=== PATIENT | male | born 1965 | race American Indian/Alaskan Native ===

== ENCOUNTER 2016-06-24 12:49 | Emergency (ER) | payer BC, OTHER ==
[2016-06-24 12:59] VITALS: BMI 30.4
[2016-06-24 13:05] VITALS: TEMP 98.4
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
[2016-06-24 14:50] VITALS: BP 121/76; PULSE 85; RESP 16; O2SAT 98
== END 2016-06-24 14:49 | disposition home or self-care (01) ==
LOC: ED 12:49
DX: S39.012A Strain of muscle, fascia and tendon of lower back, initial encounter (principal); V49.9XXA Car occupant (driver) (passenger) injured in unspecified traffic accident, initial encounter
CPT/HCPCS: 72070; 72110; 96372; 99283; J1885

== ENCOUNTER 2016-10-08 19:08 | Inpatient (IN) | payer BC, OTHER ==
[2016-10-08 19:08] VITALS: BMI 30.4
[2016-10-08] MEDS ORDERED: Sodium Chloride 0.9% 1,000 ML IV STA (19:47)
[2016-10-08] MEDS ORDERED: Morphine 4 mg/ml ISec IVP STA (19:47)
--- NOTE | 2016-10-08 19:53 | ED PDOC ---
Arrival/HPI - General Chief Complaint: Chest Pain Time Seen by Provider: 10/08/16 19:20 Historian: Patient - History of Present Illness Narrative History of Present Illness (Text): 10/08/16 19:50 Pt. to ED PMHX HTN,NIDDM with c/o intermittent right upper abdominal pain radiating at times to the back.Symptoms appear provoked /worsened post prandial.Also with occassional vomiting.Pt. also states had some burning epigastric/chest pain.Symptoms began yesterday.No hx. of any sob.No diarrhea. Past Medical History - Provider Review Nursing Documentation Reviewed: Yes - Travel History Have you recently traveled outside [place] w/in the past 3 mons?: No - Infectious Disease Hx of Infectious Diseases: None - Cardiac Hx Hypertension: Yes - Pulmonary Hx Respiratory Disorders: No - Neurological Hx Paralysis: No - Endocrine/Metabolic Hx Diabetes Mellitus Type 2: Yes - Hematological/Oncological Hx Blood Transfusions: No Hx Blood Transfusion Reaction: No - Integumentary Hx Dermatological Disorder: No - Musculoskeletal/Rheumatological Hx Musculoskeletal Disorders: No - Genitourinary/Gynecological Hx Genitourinary Disorders: No - Psychiatric Hx Emotional Abuse: No Hx Physical Abuse: No Hx Substance Use: No - Anesthesia Hx Anesthesia Reactions: No Hx Malignant Hyperthermia: No - Suicidal Assessment Feels Threatened In Home Enviroment: No Family/Social History - Physician Review Nursing Documentation Reviewed: Yes Family/Social History: Diabetes, Hypertension Smoking Status: Never Smoked Hx Alcohol Use: No Hx Substance Use: No Allergies/Home Meds Allergies/Adverse Reactions: Allergies No Known Allergies Allergy (Verified 10/05/12 10:52) Home Medications: Home Meds Medication Instructions Recorded Confirmed Glipizide 10 mg PO DAILY 04/10/15 10/08/16 Lisinopril [Zestril] 10 mg PO QAM 04/10/15 10/08/16 MetFORMIN [glucOPHAGE] 1,000 mg PO BID 04/10/15 10/08/16 Ascorbic Acid [Vitamin C] 1 tab PO DAILY 04/13/15 10/08/16 Multivitamin [Men's Multi-Vitamin] 1 tab PO DAILY 04/13/15 10/08/16 amLODIPine [Norvasc] 5 mg PO DAILY 05/03/15 10/08/16 Review of Systems - Review of Systems Constitutional: Normal Eyes: Normal ENT: Normal Respiratory: Normal Cardiovascular: Chest Pain Gastrointestinal: Abdominal Pain, Vomiting Genitourinary Male: Normal Musculoskeletal: Normal Skin: Normal Neurological: Normal Endocrine: Normal Hemo/Lymphatic: Normal Psychiatric: Normal Physical Exam Vital Signs Temp Pulse Resp BP Pulse Ox 10/09/16 01:04 98.1 F 84 18 146/78 99 10/09/16 00:01 60 10/09/16 00:00 60 10/08/16 21:39 73 18 141/80 96 10/08/16 19:16 98.2 F 108 H 18 159/83 H 99 Temperature: Afebrile Blood Pressure: Normal Pulse: Regular Respiratory Rate: Normal Appearance: Positive for: Well-Appearing, Non-Toxic, Uncomfortable Pain Distress: None Mental Status: Positive for: Alert and Oriented X 3 - Systems Exam Head: Present: Atraumatic, Normocephalic Pupils: Present: PERRL Extroacular Muscles: Present: EOMI Conjunctiva: Present: Normal Mouth: Present: Moist Mucous Membranes Pharnyx: Present: Normal Neck: Present: Normal Range of Motion Respiratory/Chest: Present: Clear to Auscultation, Good Air Exchange. No: Respiratory Distress, Accessory Muscle Use Cardiovascular: Present: Regular Rate and Rhythm, Normal S1, S2. No: Murmurs Abdomen: Present: Tenderness (right upper abdomen), Normal Bowel Sounds, Guarding (voluntary). No: Distention, Peritoneal Signs, Rebound Back: Present: Normal Inspection Upper Extremity: Present: Normal Inspection. No: Cyanosis, Edema Lower Extremity: Present: Normal Inspection. No: Edema Neurological: Present: GCS=15, CN II-XII Intact, Speech Normal, Motor Func Grossly Intact, Normal Sensory Function Skin: Present: Warm, Dry, Normal Color. No: Rashes Psychiatric: Present: Alert, Oriented x 3, Normal Insight, Normal Concentration Medical Decision Making ED Course and Treatment: 10/08/16 22:17 Reviewed sono, US Abdomen shows: Liver: Measured at 20.5 cm. Increased echogenicity. No intrahepatic bile duct dilation. Gallbladder: Cholelithiasis. No gallbladder wall thickening. Reported positive sonographic Nelson's sign. Common bile duct: Dilated at 7 mm. Pancreas: Not visualized due to bowel gas. Kidneys: Right kidney measured 11.3 cm. Left kidney measured 11.4 cm. No hydronephrosis. Spleen: No splenomegaly. Aorta/IVC: Unremarkable as visualized. IMPRESSION: Cholelithiasis. Dilated common bile duct. Reported positive sonographic Nelson' s sign. No gallbladder wall thickening. Correlate clinically for concern for cholecystitis. Nuclear hepatobiliary scan can aid in evaluation. Prominent fatty liver. Pancreas not visualized due to bowel gas. 10/08/16 22:31 Chest X-ray shows no acute processes. 10/08/16 22:[address] Freedman, who is aware and agrees with plan. Accepts pt in to his service. Pt will be admitted to Telemetry for biliary colic and chest pain. Requests Dr. Sher, Dr. Diallo, and Dr. Childress on consult. - Lab Interpretations Lab Results: 10/08/16 19:50 10/08/16 19:50 Lab Results 10/08/16 19:50: Lactate Dehydrogenase 1125 H, Total Creatine Kinase 240 H, CK- MB (CK-2) 2.7, CK-MB (CK-2) % Cancelled, Troponin I < 0.01 10/08/16 19:50: Sodium 138, Potassium 3.4 L, Chloride 100, Carbon Dioxide 25, Anion Gap 16, BUN 9, Creatinine 0.8, Est GFR ( Amer) > 60, Est GFR (Non- Af Amer) > 60, Random Glucose 126 H, Calcium 9.7, Total Bilirubin 3.7 H, AST 532 H, ALT 920 H, Alkaline Phosphatase 144 H, Total Protein 8.1, Albumin 4.5, Globulin 3.6, Albumin/Globulin Ratio 1.3, Lipase 128 10/08/16 19:50: PT 10.6, INR 0.98, APTT 24.7 10/08/16 19:50: WBC 4.7, RBC 4.36, Hgb 12.9 L, Hct 37.4 L, MCV 85.8, MCH 29.6, MCHC 34.5, RDW 12.7, Plt Count 233, MPV 10.5, Gran % 44.5 L, Lymph % (Auto) 34.8 , [place] % (Auto) 7.2 H, Eos % (Auto) 13.3 H, Baso % (Auto) 0.2, Gran # 2.11, Lymph # 1.7, [place] # 0.3, Eos # 0.6, Baso # 0.01 10/08/16 19:26: POC Glucose (mg/dL) 98 10/08/16 08:40: Urine Color Yellow, Urine Appearance Clear, Urine pH 8.0, Ur Specific [place] 1.010, Urine Protein Negative, Urine Glucose (UA) Negative, Urine Ketones Negative, Urine Blood Negative, Urine Nitrate Negative, Urine Bilirubin Negative, Urine Urobilinogen 0.2, Ur Leukocyte Esterase Negative I have reviewed the lab results: Yes - RAD Interpretation Radiology Orders: 10/08/16 19:47 CHEST PORTABLE [RAD] Stat ABDOMEN COMPLETE [US] Stat Homicide Detective: ED Physician, Radiologist - EKG Interpretation EKG Interpretation (Text): 10/08/16 19:54 EKG- NSR @ 87,normal interval,no acute changes Interpreted by ED Physician: Yes Type: 12 lead EKG - Medication Orders Current Medication Orders: Amlodipine Besylate (Norvasc) 5 mg PO DAILY [facility] Last Admin: 10/09/16 10:09 Dose: 5 mg Sodium Chloride (Sodium Chloride 0.9%) 1,000 mls @ 100 mls/hr IV .Q10H [facility] Last Admin: 10/09/16 11:47 Dose: 100 mls/hr Pantoprazole Sodium (Protonix 40mg Ivpb) 40 mg in 100 mls @ 200 mls/hr IVPB 0600 [facility] Insulin Human Regular (Humulin R High) 0 units SC ACHS CELESTINE PRN Reason: Protocol Last Admin: 10/09/16 16:58 Dose: Not Given Non-Admin Reason: Blood Sugar Parameter Lisinopril (Zestril) 10 mg PO QAM [facility] Last Admin: 10/09/16 10:09 Dose: 10 mg Morphine Sulfate (Morphine) 4 mg IVP Q4H PRN PRN Reason: Pain, moderate (4-7) Last Admin: 10/09/16 06:30 Dose: 4 mg Re-Assess: MAR Pain Assessment Document 10/09/16 07:30 CHART (Rec: 10/09/16 07:55 CHART [id number]) Pain Reassessment Is this a pain reassessment? Yes Sleep Is patient sleeping during reassessment? No Presence of Pain Presence of Pain No Description Effects of Pain patient reports that pain medication is effective in reducing pain Ondansetron HCl (Zofran Inj) 4 mg IVP Q4H PRN PRN Reason: Nausea/Vomiting Discontinued Medications Gadodiamide ( Omniscan) Confirm Administered Dose 5,740 mg IV .STK-MED ONE Stop: 10/09/16 18:36 Sodium Chloride (Sodium Chloride 0.9%) 1,000 mls @ 1,000 mls/hr IV .Q1H STA Stop: 10/08/16 20:46 Last Admin: 10/08/16 19:52 Dose: 1,000 mls/hr Morphine Sulfate (Morphine) 4 mg IVP STAT STA Stop: 10/08/16 19:48 Last Admin: 10/08/16 20:00 Dose: 4 mg Ondansetron HCl (Zofran Inj) 4 mg IVP STAT STA Stop: 10/08/16 19:48 Last Admin: 10/08/16 20:00 Dose: 4 mg Pantoprazole Sodium (Protonix Inj) 40 mg IVP STAT STA Stop: 10/08/16 19:48 Last Admin: 10/08/16 20:00 Dose: 40 mg Potassium Chloride (K-Dur 20 Meq Er Tab) 20 meq PO STAT STA Stop: 10/08/16 20:56 Last Admin: 10/08/16 21:00 Dose: 20 meq Disposition/Present on Arrival - Present on Arrival Any Indicators Present on Arrival: No History of DVT/PE: No History of Uncontrolled Diabetes: No Urinary Catheter: No History of Decub. Ulcer: No History Surgical Site Infection Following: None - Disposition Have Diagnosis and Disposition been Completed?: Yes Diagnosis: Biliary colic, Chest pain Disposition: HOSPITALIZED Disposition Time: 22:56 Patient Plan: Admission Patient Problems: Current Active Problems Problem Status Onset Biliary colic Acute Chest pain Acute Condition: STABLE
[2016-10-08 19:57] LABS: ADD MANUAL DIFF? NO
[2016-10-08 20:01] LABS: BASO # 0.01 K/mm3 (0.0-2.0); BASO % 0.2 % (0.0-3.0); EOS # 0.6 (0.0-0.7); EOS % 13.3 % (1.5-5.0); GRAN # 2.11 (1.4-6.5); GRAN % 44.5 % (50.0-68.0); HEMATOCRIT 37.4 % (42.0-52.0); LYMPH # 1.7 (1.2-3.4); LYMPH % 34.8 % (22.0-35.0); MEAN CELL VOLUME 85.8 fL (80.0-105.0); MEAN CORPUSCULAR HEMOGLOBIN 29.6 pg (25.0-35.0); MEAN CORPUSCULAR HGB CONC 34.5 g/dl (31.0-37.0); MEAN PLATELET VOLUME 10.5 fl (7.0-11.0); MONO # 0.3 (0.1-0.6); MONO % 7.2 % (1.0-6.0); PLATELET COUNT 233 10^3/uL (120.0-450.0); RED CELL DISTRIBUTION WIDTH 12.7 % (11.5-14.5); WHITE BLOOD COUNT 4.7 10^3/ul (4.5-11.0)
[2016-10-08 20:15] LABS: INR 0.98 (0.93-1.08); PARTIAL THROMBOPLASTIN TIME 24.7 Seconds (23.7-30.8)
[2016-10-08 20:20] LABS: ALB/GLOB RATIO 1.3 (1.1-1.8); ALKALINE PHOSPHATASE 144 U/L (38-133); ALT/SGPT 920 U/L (7-56); AST/SGOT 532 U/L (15-59); BILIRUBIN,TOTAL 3.7 mg/dL (0.2-1.3); BLOOD UREA NITROGEN 9 mg/dL (7-21); CALCIUM 9.7 mg/dL (8.4-10.5); CARBON DIOXIDE 25 mmol/L (21-33); CHLORIDE 100 mmol/L (98-107); GFR AFRICAN-AMERICAN > 60; GLUCOSE,RANDOM 126 mg/dL (70-110); LIPASE 128 U/L (23-300); POTASSIUM 3.4 mmol/L (3.6-5.0); SODIUM 138 mmol/L (132-148); TOTAL PROTEIN 8.1 g/dL (5.8-8.3)
[2016-10-08 20:49] LABS: URINE BILIRUBIN NEGATIVE (NEGATIVE); URINE BLOOD NEGATIVE (NEGATIVE); URINE GLUCOSE (UA) NEGATIVE (NEGATIVE); URINE KETONE NEGATIVE (NEGATIVE); URINE LEUKOCYTE ESTERASE NEGATIVE Leu/uL (NEGATIVE); URINE PROTEIN NEGATIVE mg/dL (<30 mg/dL); URINE UROBILINOGEN 0.2 E.U./dL (<1 E.U./dL)
[2016-10-08 20:55] LABS: URINE APPEARANCE CLEAR (CLEAR); URINE COLOR YELLOW (YELLOW)
[2016-10-08] MEDS ORDERED: Potassium Chloride 20 mEq ER Tab PO STA (20:55)
[2016-10-08 21:29] LABS: TROPONIN I < 0.01 ng/mL
--- NOTE | 2016-10-08 22:16 | US ---
EXAM: US Abdomen Complete CLINICAL HISTORY: 51 years old, male; Pain; Abdominal pain; Acute; Additional info: Upper abdominal pain TECHNIQUE: Real-time ultrasound of the abdomen (complete) with image documentation. COMPARISON: CT - ABD PELVIS IV CONTRAST ONLY 11/24/2015 9:16:26 PM FINDINGS: Liver: Measured at 20.5 cm. Increased echogenicity. No intrahepatic bile duct dilation. Gallbladder: Cholelithiasis. No gallbladder wall thickening. Reported positive sonographic Nelson's sign. Common bile duct: Dilated at 7 mm. Pancreas: Not visualized due to bowel gas. Kidneys: Right kidney measured 11.3 cm. Left kidney measured 11.4 cm. No hydronephrosis. Spleen: No splenomegaly. Aorta/IVC: Unremarkable as visualized. IMPRESSION: Cholelithiasis. Dilated common bile duct. Reported positive sonographic Nelson's sign. No gallbladder wall thickening. Correlate clinically for concern for cholecystitis. Nuclear hepatobiliary scan can aid in evaluation. Prominent fatty liver. Pancreas not visualized due to bowel gas.
[2016-10-09] MEDS: Sodium Chloride 0.9% 1,000 ML IV SCH ×3 (02:09→23:29)
[2016-10-09] MEDS: Morphine 4 mg/ml ISec IVP PRN (06:30)
[2016-10-09 07:36] LABS: ADD MANUAL DIFF? NO
[2016-10-09 07:49] LABS: BASO # 0.02 K/mm3 (0.0-2.0); BASO % 0.5 % (0.0-3.0); EOS # 0.6 (0.0-0.7); EOS % 13.5 % (1.5-5.0); GRAN # 2.09 (1.4-6.5); HEMATOCRIT 37.6 % (42.0-52.0); LYMPH # 1.4 (1.2-3.4); LYMPH % 31.1 % (22.0-35.0); MEAN CELL VOLUME 88.1 fL (80.0-105.0); MEAN CORPUSCULAR HEMOGLOBIN 29.5 pg (25.0-35.0); MEAN CORPUSCULAR HGB CONC 33.5 g/dl (31.0-37.0); MONO # 0.4 (0.1-0.6); MONO % 7.9 % (1.0-6.0); PLATELET COUNT 212 10^3/uL (120.0-450.0); RED CELL DISTRIBUTION WIDTH 13.2 % (11.5-14.5); WHITE BLOOD COUNT 4.4 10^3/ul (4.5-11.0)
[2016-10-09 08:10] LABS: TROPONIN I < 0.01 ng/mL
--- NOTE | 2016-10-09 08:25 | CP.PCM.CON ---
History of Present Illness - History of Present Illness History of Present Illness: General Surgery Consult Resident: Stacie Attending: Yoel HPI: We are being consulted for RUQ pain. 2 weeks ago the patient started experience intermittent RUQ pain radiating to the back. Pain occurred after eating. 2 days ago the pain became severe and constant associated with one episode of nonbloody emesis yesterday. Patient also complains of one episode of pruritus yesterday. Abdominal US was done in the ER showing gallstones and a CBD at 7mm with no choledocholithiasis. PMH: DM, HTN PSH: None SH: -smoking, social drinker Meds: Metformin, Lisinopril Allergies: NKA ROS: 10 point was done and was negative except for HPI Review of Systems - Constitutional Constitutional: As Per HPI - EENT Eyes: As Per HPI Ears: As Per HPI Nose/Mouth/Throat: As Per HPI - Cardiovascular Cardiovascular: As Per HPI - Respiratory Respiratory: As Per HPI - Gastrointestinal Gastrointestinal: As Per HPI - Genitourinary Genitourinary: As Per HPI - Reproductive: Male Reproductive:Male: As Per HPI - Musculoskeletal Musculoskeletal: As Per HPI - Integumentary Integumentary: As Per HPI - Neurological Neurological: As Per HPI - Psychiatric Psychiatric: As Per HPI - Endocrine Endocrine: As Per HPI - Hematologic/Lymphatic Hematologic: As Per HPI Past Patient History - Infectious Disease Hx of Infectious Diseases: None - Past Social History Smoking Status: Never Smoked Alcohol: Social - CARDIAC Hx Hypertension: Yes - PULMONARY Hx Respiratory Disorders: No - NEUROLOGICAL Hx Paralysis: No - ENDOCRINE/METABOLIC Hx Diabetes Mellitus Type 2: Yes - HEMATOLOGICAL/ONCOLOGICAL Hx Blood Transfusions: No Hx Blood Transfusion Reaction: No - INTEGUMENTARY Hx Dermatological Problems: No - MUSCULOSKELETAL/RHEUMATOLOGICAL Hx Falls: No - GENITOURINARY/GYNECOLOGICAL Hx Genitourinary Disorders: No - PSYCHIATRIC Hx Substance Use: No - SURGICAL HISTORY Hx Surgeries: Yes - ANESTHESIA Hx Anesthesia Reactions: No Hx Malignant Hyperthermia: No Meds Allergies/Adverse Reactions: Allergies Allergy/AdvReac Type Severity Reaction Status Date / Time No Known Allergies Allergy Verified 10/05/12 10:52 - Medications Medications: Current Medications Sodium Chloride (Sodium Chloride 0.9%) 1,000 mls @ 100 mls/hr IV .Q10H [facility] Last Admin: 10/09/16 02:09 Dose: 100 mls/hr Morphine Sulfate (Morphine) 4 mg IVP Q4H PRN PRN Reason: Pain, moderate (4-7) Last Admin: 10/09/16 06:30 Dose: 4 mg Ondansetron HCl (Zofran Inj) 4 mg IVP Q4H PRN PRN Reason: Nausea/Vomiting Physical Exam - Constitutional Appears: No Acute Distress - Eye Exam Eye Exam: EOMI, Scleral icterus - ENT Exam ENT Exam: Mucous Membranes Moist - Respiratory Exam Respiratory Exam: Clear to Auscultation Bilateral - Cardiovascular Exam Cardiovascular Exam: REGULAR RHYTHM - GI/Abdominal Exam GI & Abdominal Exam: Soft, Tenderness (RUQ, -Nelson). absent: Distended, Firm Results - Vital Signs Recent Vital Signs: Last Vital Signs Temp 97.9 F 10/09/16 06:00 Pulse 68 10/09/16 06:00 Resp 22 10/09/16 06:00 BP 151/90 H 10/09/16 06:00 Pulse Ox 98 10/09/16 06:00 - Labs Result Diagrams: 10/09/16 07:35 10/09/16 07:35 Labs: Laboratory Results - last 24 hr 10/09/16 07:35 WBC 4.4 L RBC 4.27 Hgb 12.6 L Hct 37.6 L MCV 88.1 MCH 29.5 MCHC 33.5 RDW 13.2 Plt Count 212 MPV 11.0 Gran % 47.0 L Lymph % (Auto) 31.1 [place] % (Auto) 7.9 H Eos % (Auto) 13.5 H Baso % (Auto) 0.5 Gran # 2.09 Lymph # 1.4 [place] # 0.4 Eos # 0.6 Baso # 0.02 Assessment & Plan - Assessment and Plan (Free Text) Assessment: 51 male with gallstones * CLD, NPO after midnight * Pain control * GI recs, Possible surgery depending on GI findings * SWETA Quinones DO PGY-1 - Date & Time Date: 10/09/16 Time: 09:53
[2016-10-09 08:36] LABS: ALB/GLOB RATIO 1.2 (1.1-1.8); ALKALINE PHOSPHATASE 139 U/L (38-133); ALT/SGPT 744 U/L (7-56); AST/SGOT 341 U/L (15-59); BILIRUBIN,TOTAL 2.8 mg/dL (0.2-1.3); BLOOD UREA NITROGEN 9 mg/dL (7-21); CALCIUM 9.1 mg/dL (8.4-10.5); CARBON DIOXIDE 24 mmol/L (21-33); CHLORIDE 102 mmol/L (98-107); GFR AFRICAN-AMERICAN > 60; GLUCOSE,RANDOM 220 mg/dL (70-110); SODIUM 139 mmol/L (132-148); TOTAL PROTEIN 7.5 g/dL (5.8-8.3)
[2016-10-09] MEDS: Insulin Reg-HIGH-Coverage SC SCH ×3 (11:47→21:27)
--- NOTE | 2016-10-09 11:53 | RAD ---
HISTORY: chest/abdominal pain COMPARISON: Chest radiograph 06/24/2016 FINDINGS: LUNGS: No active pulmonary disease. PLEURA: No significant pleural effusion identified, no pneumothorax apparent. CARDIOVASCULAR: Frontal magnification of the cardiac silhouette is seen versus intrinsic cardiomegaly. However, there is no pulmonary vascular congestion appreciated. OSSEOUS STRUCTURES: No significant abnormalities. VISUALIZED UPPER ABDOMEN: Normal. OTHER FINDINGS: None. IMPRESSION: No acute pulmonary disease. Cardiac silhouette appears stable appearing somewhat prominent.
--- NOTE | 2016-10-09 13:56 | CARD ---
APPROVED REPORT EKG Measurement Heart [id number] [place] [id number] <Conclusion> Normal sinus rhythm Normal ECG
--- NOTE | 2016-10-09 17:58 | CP.PCM.CON ---
History of Present Illness - History of Present Illness History of Present Illness: This 51-year-old patient with you past medical history of diabetes mellitus non- insulin-dependentDiabetes mellitus admitted with the abdominal pain right upper quadrant area started about a week ago mild last 2 days progressively worse and it can present to the emergency room he points of the pain mainly in the right upper quadrant area and also epigastric area. No complaints of diarrhea no fever patient had an ultrasound scan of the abdomen showed a gallstones in the common bile duct about 7 mm. LFTs significantly elevated with a total bilirubin is 2.8 yesterday It was 3.7 slightly showing a downward trend.No complaints of diarrhea no vomiting. Review of Systems - Review of Systems All systems: reviewed and no additional remarkable complaints except - Constitutional Constitutional: As Per HPI. absent: Chills, Fever - EENT Eyes: absent: Diplopia, Discharge Ears: As Per HPI Nose/Mouth/Throat: As Per HPI - Cardiovascular Cardiovascular: absent: Chest Pain, Palpitations - Respiratory Respiratory: absent: Dyspnea, Wheezing - Gastrointestinal Gastrointestinal: As Per HPI - Genitourinary Genitourinary: absent: Dysuria, Hematuria - Musculoskeletal Musculoskeletal: As Per HPI - Integumentary Integumentary: As Per HPI - Neurological Neurological: As Per HPI - Endocrine Additional Comments: Diabetes mellitus - Hematologic/Lymphatic Hematologic: As Per HPI. absent: Lymphadenopathy Past Patient History - Infectious Disease Hx of Infectious Diseases: None - Past Social History Smoking Status: Never Smoked Alcohol: Social - CARDIAC Hx Hypertension: Yes - PULMONARY Hx Respiratory Disorders: No - NEUROLOGICAL Hx Paralysis: No - ENDOCRINE/METABOLIC Hx Diabetes Mellitus Type 2: Yes - HEMATOLOGICAL/ONCOLOGICAL Hx Blood Transfusions: No Hx Blood Transfusion Reaction: No - INTEGUMENTARY Hx Dermatological Problems: No - MUSCULOSKELETAL/RHEUMATOLOGICAL Hx Falls: No - GENITOURINARY/GYNECOLOGICAL Hx Genitourinary Disorders: No - PSYCHIATRIC Hx Substance Use: No - SURGICAL HISTORY Hx Surgeries: Yes - ANESTHESIA Hx Anesthesia Reactions: No Hx Malignant Hyperthermia: No Meds Allergies/Adverse Reactions: Allergies Allergy/AdvReac Type Severity Reaction Status Date / Time No Known Allergies Allergy Verified 10/05/12 10:52 - Medications Medications: Current Medications Amlodipine Besylate (Norvasc) 5 mg PO DAILY [facility] Last Admin: 10/09/16 10:09 Dose: 5 mg Sodium Chloride (Sodium Chloride 0.9%) 1,000 mls @ 100 mls/hr IV .Q10H [facility] Last Admin: 10/09/16 11:47 Dose: 100 mls/hr Pantoprazole Sodium (Protonix 40mg Ivpb) 40 mg in 100 mls @ 200 mls/hr IVPB 0600 [facility] Insulin Human Regular (Humulin R High) 0 units SC ACHS [facility] PRN Reason: Protocol Last Admin: 10/09/16 16:58 Dose: Not Given Lisinopril (Zestril) 10 mg PO QAM [facility] Last Admin: 10/09/16 10:09 Dose: 10 mg Morphine Sulfate (Morphine) 4 mg IVP Q4H PRN PRN Reason: Pain, moderate (4-7) Last Admin: 10/09/16 06:30 Dose: 4 mg Ondansetron HCl (Zofran Inj) 4 mg IVP Q4H PRN PRN Reason: Nausea/Vomiting Physical Exam - Constitutional Appears: No Acute Distress - Head Exam Head Exam: ATRAUMATIC, NORMOCEPHALIC Additional comments: Jaundiced - Eye Exam Eye Exam: PERRL - ENT Exam ENT Exam: Mucous Membranes Moist, Normal Exam - Neck Exam Neck exam: Positive for: Normal Inspection. Negative for: Lymphadenopathy - Respiratory Exam Respiratory Exam: Clear to Auscultation Bilateral, NORMAL BREATHING PATTERN. absent: Accessory Muscle Use - Cardiovascular Exam Cardiovascular Exam: REGULAR RHYTHM, +S1, +S2. absent: JVD - GI/Abdominal Exam GI & Abdominal Exam: Normal Bowel Sounds, Soft, Tenderness Additional comments: Mild tenderness in the epigastric and right upper quadrant area on deep palpation - Extremities Exam Extremities exam: Positive for: normal inspection. Negative for: calf tenderness - Neurological Exam Neurological exam: Alert, Oriented x3 Results - Vital Signs Recent Vital Signs: Last Vital Signs Temp 98.3 F 10/09/16 12:00 Pulse 87 10/09/16 12:00 Resp 20 10/09/16 12:00 BP 121/69 10/09/16 12:00 Pulse Ox 98 10/09/16 06:00 - Labs Result Diagrams: 10/09/16 07:35 10/09/16 07:35 Labs: Laboratory Results - last 24 hr 10/09/16 10/09/16 10/09/16 07:11 07:35 07:35 WBC 4.4 L RBC 4.27 Hgb 12.6 L Hct 37.6 L MCV 88.1 MCH 29.5 MCHC 33.5 RDW 13.2 Plt Count 212 MPV 11.0 Gran % 47.0 L Lymph % (Auto) 31.1 [place] % (Auto) 7.9 H Eos % (Auto) 13.5 H Baso % (Auto) 0.5 Gran # 2.09 Lymph # 1.4 [place] # 0.4 Eos # 0.6 Baso # 0.02 Sodium 139 Potassium 4.0 Chloride 102 Carbon Dioxide 24 Anion Gap 17 BUN 9 Creatinine 0.9 Est GFR ( Amer) > 60 Est GFR (Non-Af Amer) > 60 Random Glucose 220 H Calcium 9.1 Total Bilirubin 2.8 H AST 341 H ALT 744 H Alkaline Phosphatase 139 H Lactate Dehydrogenase 734 H Total Creatine Kinase 218 Troponin I < 0.01 Total Protein 7.5 Albumin 4.1 Globulin 3.4 Albumin/Globulin Ratio 1.2 10/09/16 14:19 WBC RBC Hgb Hct MCV MCH MCHC RDW Plt Count MPV Gran % Lymph % (Auto) [place] % (Auto) Eos % (Auto) Baso % (Auto) Gran # Lymph # [place] # Eos # Baso # Sodium Potassium Chloride Carbon Dioxide Anion Gap BUN Creatinine Est GFR ( Amer) Est GFR (Non-Af Amer) Random Glucose Calcium Total Bilirubin AST ALT Alkaline Phosphatase Lactate Dehydrogenase Total Creatine Kinase Troponin I < 0.01 Total Protein Albumin Globulin Albumin/Globulin Ratio Assessment & Plan - Assessment and Plan (Free Text) Assessment: This 51-year-old patient with diabetes mellitus hypertension admitted with the epigastric and right upper quadrant area has gallstones and common bile duct mildly prominent measuring about 7 mm elevated LFTs showing slight downward trend. Rule out CBD stone Plan: 1. MRI of the abdomen with MRCP to further evaluate to the common bile duct 2. Hepatitis profile as a baseline workup 3. Follow up on the LFTs 4. Continue the present management We will discuss with the surgical team and PCP - Date & Time Date: 10/09/16 Time: 14:00
[2016-10-09] MEDS ORDERED: Gadodiamide 287 MG/ML VIAL (20ML) IV ONE (18:35)
--- NOTE | 2016-10-09 20:44 | HP ---
HISTORY OF PRESENT ILLNESS: He is a nice man, I saw him in the office the other day. He is a 51-year-old man who presented with indigestion, gave him some medications, sent him home, he did well and he comes to emergency room with intermittent right upper quadrant pain and chest pain. PAST MEDICAL HISTORY: Diabetes, hypertension, now with right upper quadrant pain. SOCIAL HISTORY: He never smoked, no alcohol, no drugs. ALLERGIES: NO KNOWN DRUG ALLERGIES. MEDICATIONS: He takes glipizide, Zestril, Glucophage, vitamin C, multivitamin and Norvasc. REVIEW OF SYSTEMS: No vision change. No hearing change. No sore throat. He had chest pain. He had abdominal pain, right upper quadrant with vomiting. No diarrhea or constipation. No problems of urinating. No skin issues or problems. No leg or arm problems. No headache or dizziness. PHYSICAL EXAMINATION VITAL SIGNS: 98.2 temperature, 108 pulse, 18 respiratory rate, 159/83 blood pressure, 99% O2 sat on room air. GENERAL: Well appearing, nontoxic, comfortable at this time on pain meds, alert and oriented x3. HEENT: Head atraumatic and normocephalic. Extraocular muscles are intact. Pupils equal and reactive to light and accommodation. Throat is moist. HEART: Regular rate. Normal S1 and S2. LUNGS: Decreased breath sounds with clear to auscultation. Poor respiration at this time. NECK: Supple. No JVD. No palpable or appreciative lymphadenopathy. Thyroid is midline. ABDOMEN: Mildly distended right upper quadrant, discomfort mild guarding, no rebound. He is uncomfortable with faint diffuse bowels sounds with little. No CVA tenderness. EXTREMITIES: No edema. NEUROLOGIC: GCS is 15. Cranial nerves II through XII grossly intact. Speech is normal. Normal motor function. Skin is warm and dry. Alert and oriented x3. Normal insight. LABORATORY DATA: He had a bunch of tests. He has 4.4 white count, 12.6 hemoglobin, 37.6 hematocrit with 212 platelets. INR is 0.98. He has 139 sodium, potassium is up to 4, BUN 9, creatinine 0.9, GFR is greater than 60, sugar is 220, calcium 9.1. Total bilirubin is 2.8. AST is 341, ALT is 744 and alkaline phosphatase 139 AST is 532, ALT is 920 and alkaline phosphatase 144, it is slowly coming down. His lactate dehydrogenase looks 1125 now it is down to 734. Total creatinine kinase is 240, now it is down 218. His troponin so far 0.01 or less. Total protein is 7.5. His urine is clean. He had a chest x-ray pending. He has an ultrasound of the abdomen, which shows cholelithiasis, dilated common bile duct, reported positive sonographic Nelson's sign, no gallbladder wall thickening, concerns of cholecystitis, problem of fatty liver, liver consult with GI surgery and cardiology. We will put him on a sliding scale insulin, IV fluids, Protonix, pain medication, put him back on blood pressure medications, morphine for pain, potassium replacement and Zofran just in case he gets nauseous. History of severe right upper quadrant pain, chest pain, also elevated liver enzymes, gallstones, hypertension with diabetes. Jose Manuel Freedman DO MTDD
--- NOTE | 2016-10-09 20:55 | MRI ---
EXAM: MR Abdomen Without and With Intravenous Contrast CLINICAL HISTORY: 51 years old, male; Signs and symptoms; Bloating; Additional info: R/O cbd stones TECHNIQUE: Multiplanar magnetic resonance images of the abdomen without and with intravenous contrast. CONTRAST: 18 mL of omniscan administered intravenously. EXAM DATE/TIME: 10/09/2016 1:49 PM COMPARISON: Recent abdominal ultrasound of 10/08/2016. FINDINGS: LIMITATIONS: Moderate motion artifact. LIVER: Liver is enlarged, measuring 23 cm in length, and demonstrates diffuse fatty infiltration. GALLBLADDER AND BILE DUCTS: Extensive cholelithiasis. The gallbladder lumen is filled with multiple small gallstones. Mild focal wall thickening and wall edema are seen, at the gallbladder fundus. There is no evidence of diffuse pericholecystic fluid or diffuse gallbladder wall thickening. Common bile duct is mildly dilated, measuring up to 8 mm in diameter. No common bile duct stones are visualized. PANCREAS: No evidence of significant peripancreatic fluid. No definite pancreatic lesions seen, allowing for motion artifact. No evidence of significant pancreatic ductal dilatation ductal dilation. SPLEEN: No acute abnormality of the spleen identified. ADRENALS: No acute abnormality of the adrenal glands identified. KIDNEYS AND URETERS: No acute abnormality of the kidneys identified. INTRAPERITONEAL SPACE: No evidence of significant free fluid. IMPRESSION: - Extensive gallstones. - Mild focal thickening and edema of the gallbladder wall, at the gallbladder fundus, of uncertain clinical significance, but cannot entirely rule out early acute cholecystitis. Recommend clinical correlation. No evidence of diffuse pericholecystic fluid or diffuse gallbladder wall thickening. - Mildly dilated common bile duct, 8 mm (normal less than 6 mm), cause not identified. No common bile duct stones visualized. - See above for remaining findings.
[2016-10-09] MEDS ORDERED: HYDROmorphone 0.5 mg/0.5 ml ISec IVP STA (22:12)
--- NOTE | 2016-10-09 22:55 | CON ---
DATE: 10/09/2016 HISTORY OF PRESENT ILLNESS: The patient is a 51-year-old male who presents with right upper quadrant discomfort. The patient's past medical history is free of cardiac disease. A stress test done several years ago was unremarkable. He denies chest pain, denies shortness of breath. His cardiac risk factors include diabetes mellitus, hypertension with a history of smoking. SOCIAL HISTORY: The patient is an active smoker. REVIEW OF SYSTEMS: On 14-point review of systems there are no cardiac symptomatology noted. PHYSICAL EXAMINATION: VITAL SIGNS: Blood pressure is 121/70, heart rate in the 80s. NECK: Negative JVD. LUNGS: Without rales. HEART: S1, S2. EXTREMITIES: Without edema. EKG shows no acute changes. LABORATORY DATA: Hemoglobin is 12.6. Chemistries, troponins are negative x2. The liver function tests are elevated. IMPRESSION: 1.: Cholelithiasis. 2. Diabetes mellitus. 3. Hypertension. 4. History of smoking. 5. Elevated LFTs. PLAN: Given these findings, there is no evidence for acute coronary syndrome. The patient's symptoms are predominantly from his gallbladder. I have discussed with the patient about reducing and controlling his cardiac risk factors. Awaiting GI and surgical input. Vamshi Sher MD cc:
[2016-10-10] MEDS: Pantoprazole 40mg/100ml IVPB 40 MG/100 ML BAG IVPB SCH (04:59)
[2016-10-10 06:30] LABS: HEMATOCRIT 39.2 % (42.0-52.0); MEAN CELL VOLUME 87.5 fL (80.0-105.0); MEAN CORPUSCULAR HEMOGLOBIN 28.8 pg (25.0-35.0); MEAN CORPUSCULAR HGB CONC 32.9 g/dl (31.0-37.0); MEAN PLATELET VOLUME 10.8 fl (7.0-11.0); RED CELL DISTRIBUTION WIDTH 13.1 % (11.5-14.5); WHITE BLOOD COUNT 4.1 10^3/ul (4.5-11.0)
[2016-10-10 06:41] LABS: ALB/GLOB RATIO 1.3 (1.1-1.8); ALKALINE PHOSPHATASE 147 U/L (38-133); ALT/SGPT 574 U/L (7-56); AST/SGOT 182 U/L (15-59); BILIRUBIN,TOTAL 1.7 mg/dL (0.2-1.3); BLOOD UREA NITROGEN 6 mg/dL (7-21); CALCIUM 9.2 mg/dL (8.4-10.5); CARBON DIOXIDE 27 mmol/L (21-33); CHLORIDE 102 mmol/L (95-110); GFR AFRICAN-AMERICAN > 60; GLUCOSE,RANDOM 177 mg/dL (70-110); POTASSIUM 3.8 mmol/L (3.6-5.0); SODIUM 140 mmol/L (132-148); TOTAL PROTEIN 7.1 g/dL (5.8-8.3)
[2016-10-10] MEDS: Insulin Reg-HIGH-Coverage SC SCH ×4 (08:11→21:48)
--- NOTE | 2016-10-10 08:37 | CP.PCM.PN ---
Subjective - Date & Time of Evaluation Date of Evaluation: 10/10/16 Time of Evaluation: 08:00 - Subjective Subjective: Surgery Progress Note: Dr. Diallo Patient seen and examined at bedside. No acute events overnight. Continues to experience abdominal pain. Denies nausea and vomiting. Objective - Vital Signs/Intake and Output Vital Signs (last 24 hours): Temp Pulse Resp BP Pulse Ox 97.8 F 70 20 132/71 95 10/10/16 06:00 10/10/16 06:00 10/10/16 06:00 10/10/16 06:00 10/10/16 06:00 Intake and Output: 10/10/16 10/10/16 06:59 18:59 Intake Total 2400 0 Output Total 4 Balance 2400 -4 - Medications Medications: Current Medications Amlodipine Besylate (Norvasc) 5 mg PO DAILY [facility] Last Admin: 10/09/16 10:09 Dose: 5 mg Sodium Chloride (Sodium Chloride 0.9%) 1,000 mls @ 100 mls/hr IV .Q10H [facility] Last Admin: 10/09/16 23:29 Dose: 100 mls/hr Pantoprazole Sodium (Protonix 40mg Ivpb) 40 mg in 100 mls @ 200 mls/hr IVPB 0600 [facility] Last Admin: 10/10/16 04:59 Dose: 200 mls/hr Insulin Human Regular (Humulin R High) 0 units SC ACHS [facility] PRN Reason: Protocol Last Admin: 10/10/16 08:11 Dose: Not Given Lisinopril (Zestril) 10 mg PO QAM [facility] Last Admin: 10/09/16 10:09 Dose: 10 mg Morphine Sulfate (Morphine) 4 mg IVP Q4H PRN PRN Reason: Pain, moderate (4-7) Last Admin: 10/09/16 06:30 Dose: 4 mg Ondansetron HCl (Zofran Inj) 4 mg IVP Q4H PRN PRN Reason: Nausea/Vomiting - Labs Labs: 10/10/16 06:00 10/10/16 06:00 PT 10.6 Seconds (9.9-11.8) 10/08/16 19:50 INR 0.98 (0.93-1.08) 10/08/16 19:50 APTT 24.7 Seconds (23.7-30.8) 10/08/16 19:50 - Additional Findings Additional findings: - Constitutional Appears: No Acute Distress - Eye Exam Eye Exam: EOMI, Scleral icterus - ENT Exam ENT Exam: Mucous Membranes Moist - Respiratory Exam Respiratory Exam: Clear to Auscultation Bilateral - Cardiovascular Exam Cardiovascular Exam: REGULAR RHYTHM - GI/Abdominal Exam GI & Abdominal Exam: Soft, Tenderness (RUQ, -Nelson). absent: Distended, Firm Assessment and Plan - Assessment and Plan (Free Text) Assessment: 51 male with gallstones * CBD Dilation8 mm * Pain control * IVF * GI recs * EUS today * Surgery tomorrow Will SWETA Diallo
[2016-10-10] MEDS: Sodium Chloride 0.9% 1,000 ML IV SCH ×3 (10:21→20:38)
--- NOTE | 2016-10-10 11:00 | PN ---
DATE: 10/10/2016 SUBJECTIVE: The patient still complains of right upper quadrant discomfort. OBJECTIVE: VITAL SIGNS: Blood pressure 132/71, heart rate in the 70s. NECK: Negative JVD. LUNGS: Without rales. HEART: Regular S1 and S2. EXTREMITIES: Without edema. LABORATORY DATA: Noted. IMPRESSION 1. Gallstones. 2. Elevated LFTs. 3. History of hypertension. 4. Diabetes mellitus. 5. History of smoking. Given these findings, the patient is hemodynamically stable. Awaiting decision on intervention for his gallstones. Vamshi Sher MD
--- NOTE | 2016-10-10 11:13 | PN ---
DATE: SUBJECTIVE: I saw Vance resting comfortably in bed. He slept fairly well. His n.p.o. this morning. He is being seen by GI, Cardiology, and Surgery for possible gallbladder surgery this morning. He is a diabetic. PHYSICAL EXAMINATION: VITAL SIGNS: 97.8 temperature, 70 pulse, 132/71 blood pressure, 20 respiratory rate, 95% sat on room air. HEENT: Head is atraumatic and normocephalic. HEART: Regular rate. LUNGS: Clear to auscultation. ABDOMEN: Soft. Positive bowel sounds, nontender. He is doing better than when he came in. EXTREMITIES: No edema. MEDICATIONS: He is currently on insulin coverage, morphine, Norvasc, Protonix IV, IV fluids, Zestril and Zofran. LABORATORY DATA: His blood work today revealed a 139 sodium, potassium is 4, BUN 9, creatinine 0.9, GFR is greater than 60, sugar is 220, calcium is 9.1. Total bilirubin is 2.8, coming down. AST is 341, coming down. ALT is 744, coming down and alkaline phosphatase 139, coming down. Lactate dehydrogenase 734 as well as the liver enzymes are very elevated, but they are coming down. Troponins all of them are less than 0.1, protein is 7.5, INR is good at 0.98. He had a 4.1 white count, 12.9 hemoglobin, 39.2 hematocrit with 216 platelets. He had an MRCP, which showed extensive gallstones, mild focal thickening and edema of the gallbladder wall at the gallbladder fundus of uncertain clinical significance, but cannot entirely rule out early acute cholecystitis. ASSESSMENT AND PLAN: With history of diabetes and abdominal pain and multiple gallstones, and possible cholecystitis, he might be a good candidate for gallbladder surgery this morning. We will see what surgery has to say. We will continue with aggressive treatment and care. check his labs tomorrow, watch his blood sugars. The patient understands he might be going for gallbladder surgery. Jose Manuel Freedman DO
[2016-10-10] MEDS ORDERED: Iohexol 240 (50 ml) ONE (12:40)
[2016-10-10] MEDS ORDERED: Glucagon Recombinant 1 mg Inj ONE (12:40)
[2016-10-10] MEDS ORDERED: Indomethacin 50 MG Suppository PR ONE (12:41)
[2016-10-10] MEDS: HYDROmorphone 1 mg/ml ISec IVP PRN (13:25)
[2016-10-10] MEDS ORDERED: cefTRIAXone (Rocephin) 1 gm Inj ONE (15:34)
[2016-10-10] MEDS ORDERED: Midazolam 2 MG/2 ML VIAL ONE (15:40)
[2016-10-10] MEDS ORDERED: Propofol 10 mg/ml Inj (20 ML) ONE ×2 (15:40→17:54)
[2016-10-10] MEDS ORDERED: Rocuronium 10 mg/ml (5 ml) ONE (15:51)
[2016-10-10] MEDS ORDERED: ePHEDrine 50 mg/ml Inj ONE (17:11)
[2016-10-10] MEDS ORDERED: HYDROmorphone 0.5 mg/0.5 ml ISec ONE (18:29)
[2016-10-10] MEDS ORDERED: HYDROmorphone 0.5 mg/0.5 ml ISec IVP PRN (20:03)
[2016-10-10] MEDS ORDERED: Lactated Ringer's 1,000 ML IV SCH (20:03)
--- NOTE | 2016-10-10 21:33 | CP.PCM.PN ---
Subjective - Date & Time of Evaluation Date of Evaluation: 10/10/16 Time of Evaluation: 21:32 - Subjective Subjective: Patient was seen at bedside because he wanted to sign out AMA. Insisted on getting a private room and stated that he would sign out if he did not get a private room because his has inconvenience . Has no other complaints. He is for surgery in the morning. Medical record was reviewed. This 51 year old male admitted with intermittent right upper quadrant pain and chest pain,cholelithiasis,elevated LFT's. Has PMH of DM, HTN, overweight. Objective - Vital Signs/Intake and Output Vital Signs (last 24 hours): Temp Pulse Resp BP Pulse Ox 98.6 F 85 14 157/85 H 100 10/10/16 19:00 10/10/16 20:30 10/10/16 19:00 10/10/16 19:00 10/10/16 19:00 Intake and Output: 10/10/16 10/11/16 18:59 06:59 Intake Total 150 Output Total 4 Balance 146 - Medications Medications: Current Medications Amlodipine Besylate (Norvasc) 5 mg PO DAILY [facility] Last Admin: 10/10/16 09:31 Dose: 5 mg Hydromorphone HCl (Dilaudid) 1 mg IVP Q4H PRN PRN Reason: abdominal pain Last Admin: 10/10/16 13:25 Dose: 1 mg Hydromorphone HCl (Dilaudid) 0.5 mg IVP Q15M PRN PRN Reason: Pain, moderate (4-7) Stop: 10/10/16 22:03 Pantoprazole Sodium (Protonix 40mg Ivpb) 40 mg in 100 mls @ 200 mls/hr IVPB 0600 [facility] Last Admin: 10/10/16 04:59 Dose: 200 mls/hr Sodium Chloride (Sodium Chloride 0.9%) 1,000 mls @ 150 mls/hr IV .Q6H40M [facility] Last Admin: 10/10/16 20:38 Dose: Not Given Lactated Ringer's (Lactated Ringer's) 1,000 mls @ 75 mls/hr IV .H20H34P [facility] Stop: 10/10/16 22:04 Last Admin: 10/10/16 20:37 Dose: Not Given Insulin Human Regular (Humulin R High) 0 units SC [facility] CELESTINE PRN Reason: Protocol Last Admin: 10/10/16 18:04 Dose: Not Given Lisinopril (Zestril) 10 mg PO QAM [facility] Last Admin: 10/10/16 09:32 Dose: 10 mg Morphine Sulfate (Morphine) 4 mg IVP Q4H PRN PRN Reason: Pain, moderate (4-7) Last Admin: 10/09/16 06:30 Dose: 4 mg Ondansetron HCl (Zofran Inj) 4 mg IVP Q4H PRN PRN Reason: Nausea/Vomiting Ondansetron HCl (Zofran Inj) 4 mg IVP ONCE PRN PRN Reason: Nausea/Vomiting - Labs Labs: 10/10/16 06:00 10/10/16 06:00 PT 10.6 Seconds (9.9-11.8) 10/08/16 19:50 INR 0.98 (0.93-1.08) 10/08/16 19:50 APTT 24.7 Seconds (23.7-30.8) 10/08/16 19:50 Laboratory Last Values WBC 4.1 10^3/ul (4.5-11.0) L 10/10/16 06:00 RBC 4.48 10^6/uL (3.5-6.1) 10/10/16 06:00 Hgb 12.9 gm/dL (14.0-18.0) L 10/10/16 06:00 Hct 39.2 % (42.0-52.0) L 10/10/16 06:00 MCV 87.5 fL (80.0-105.0) 10/10/16 06:00 MCH 28.8 pg (25.0-35.0) 10/10/16 06:00 MCHC 32.9 g/dl (31.0-37.0) 10/10/16 06:00 RDW 13.1 % (11.5-14.5) 10/10/16 06:00 Plt Count 216 10^3/uL (120.0-450.0) 10/10/16 06:00 MPV 10.8 fl (7.0-11.0) 10/10/16 06:00 Gran % 47.0 % (50.0-68.0) L 10/09/16 07:35 Lymph % (Auto) 31.1 % (22.0-35.0) 10/09/16 07:35 [place] % (Auto) 7.9 % (1.0-6.0) H 10/09/16 07:35 Eos % (Auto) 13.5 % (1.5-5.0) H 10/09/16 07:35 Baso % (Auto) 0.5 % (0.0-3.0) 10/09/16 07:35 Gran # 2.09 (1.4-6.5) 10/09/16 07:35 Lymph # 1.4 (1.2-3.4) 10/09/16 07:35 [place] # 0.4 (0.1-0.6) 10/09/16 07:35 Eos # 0.6 (0.0-0.7) 10/09/16 07:35 Baso # 0.02 K/mm3 (0.0-2.0) 10/09/16 07:35 PT 10.6 Seconds (9.9-11.8) 10/08/16 19:50 INR 0.98 (0.93-1.08) 10/08/16 19:50 APTT 24.7 Seconds (23.7-30.8) 10/08/16 19:50 Sodium 140 mmol/L (132-148) 10/10/16 06:00 Potassium 3.8 mmol/L (3.6-5.0) 10/10/16 06:00 Chloride 102 mmol/L (95-110) 10/10/16 06:00 Carbon Dioxide 27 mmol/L (21-33) 10/10/16 06:00 Anion Gap 15 (10-20) 10/10/16 06:00 BUN 6 mg/dL (7-21) L 10/10/16 06:00 Creatinine 0.8 mg/dL (0.5-1.4) 10/10/16 06:00 Est GFR ( Amer) > 60 10/10/16 06:00 Est GFR (Non-Af Amer) > 60 10/10/16 06:00 POC Glucose (mg/dL) 98 mg/dL (65-110) 10/08/16 19:26 Random Glucose 177 mg/dL (70-110) H 10/10/16 06:00 Calcium 9.2 mg/dL (8.4-10.5) 10/10/16 06:00 Total Bilirubin 1.7 mg/dL (0.2-1.3) H 10/10/16 06:00 AST 182 U/L (15-59) H 10/10/16 06:00 ALT 574 U/L (7-56) H 10/10/16 06:00 Alkaline Phosphatase 147 U/L (38-133) H 10/10/16 06:00 Lactate Dehydrogenase 734 U/L (333-699) H 10/09/16 07:11 Total Creatine Kinase 218 U/L (35-230) 10/09/16 07:11 CK-MB (CK-2) 2.7 ng/mL (0.0-3.6) 10/08/16 19:50 CK-MB (CK-2) % Cancelled 10/08/16 19:50 Troponin I < 0.01 ng/mL 10/09/16 22:10 Total Protein 7.1 g/dL (5.8-8.3) 10/10/16 06:00 Albumin 4.0 g/dL (3.0-4.8) 10/10/16 06:00 Globulin 3.1 gm/dL 10/10/16 06:00 Albumin/Globulin Ratio 1.3 (1.1-1.8) 10/10/16 06:00 Lipase 128 U/L (23-300) 10/08/16 19:50 Urine Color Yellow (YELLOW) 10/08/16 08:40 Urine Appearance Clear (CLEAR) 10/08/16 08:40 Urine pH 8.0 (4.7-8.0) 10/08/16 08:40 Ur Specific [place] 1.010 (1.005-1.035) 10/08/16 08:40 Urine Protein Negative mg/dL (<30 mg/dL) 10/08/16 08:40 Urine Glucose (UA) Negative mg/dL (NEGATIVE) 10/08/16 08:40 Urine Ketones Negative mg/dL (NEGATIVE) 10/08/16 08:40 Urine Blood Negative (NEGATIVE) 10/08/16 08:40 Urine Nitrate Negative (NEGATIVE) 10/08/16 08:40 Urine Bilirubin Negative (NEGATIVE) 10/08/16 08:40 Urine Urobilinogen 0.2 E.U./dL (<1 E.U./dL) 10/08/16 08:40 Ur Leukocyte Esterase Negative Ines/uL (NEGATIVE) 10/08/16 08:40 Blood Type A POSITIVE 10/10/16 12:00 Blood Type Confirm A POSITIVE 10/10/16 12:30 Antibody Screen Negative 10/10/16 12:00 BBK History Checked No verified bt 10/10/16 12:00 - Constitutional Appears: Well, No Acute Distress - Head Exam Head Exam: ATRAUMATIC, NORMAL INSPECTION, NORMOCEPHALIC - Eye Exam Eye Exam: Normal appearance - ENT Exam ENT Exam: Normal External Ear Exam - Neck Exam Neck Exam: Normal Inspection - Respiratory Exam Respiratory Exam: NORMAL BREATHING PATTERN - Cardiovascular Exam Cardiovascular Exam: absent: JVD - GI/Abdominal Exam GI & Abdominal Exam: absent: Distended - Rectal Exam Rectal Exam: Deferred - Exam Additional comments: Deferred. - Extremities Exam Extremities Exam: Normal Inspection - Back Exam Back Exam: NORMAL INSPECTION - Neurological Exam Neurological Exam: Alert, Oriented x3 - Psychiatric Exam Psychiatric exam: Normal Affect, Normal Mood - Skin Skin Exam: Normal Color Assessment and Plan - Assessment and Plan (Free Text) Assessment: Non compliant. Wants to sign out AMA Chest pain. RUQ pain. DM. HTN. Cholelithiasis. Plan: Tried to convince patient to stay . Patient agreed . For Surgical intervention in AM.
[2016-10-11] MEDS: Sodium Chloride 0.9% 1,000 ML IV SCH ×3 (02:39→21:41)
[2016-10-11] MEDS: Pantoprazole 40mg/100ml IVPB 40 MG/100 ML BAG IVPB SCH (05:07)
[2016-10-11 06:24] LABS: HEMATOCRIT 39.4 % (42.0-52.0); MEAN CELL VOLUME 86.8 fL (80.0-105.0); MEAN CORPUSCULAR HEMOGLOBIN 29.7 pg (25.0-35.0); MEAN CORPUSCULAR HGB CONC 34.3 g/dl (31.0-37.0); MEAN PLATELET VOLUME 10.6 fl (7.0-11.0); WHITE BLOOD COUNT 5.6 10^3/ul (4.5-11.0)
[2016-10-11 06:56] LABS: ALB/GLOB RATIO 1.3 (1.1-1.8); ALKALINE PHOSPHATASE 152 U/L (38-133); ALT/SGPT 498 U/L (7-56); AMYLASE 71 U/L (35-125); AST/SGOT 142 U/L (15-59); BLOOD UREA NITROGEN 10 mg/dL (7-21); CALCIUM 9.3 mg/dL (8.4-10.5); CARBON DIOXIDE 23 mmol/L (21-33); CHLORIDE 102 mmol/L (95-110); GFR AFRICAN-AMERICAN > 60; GLUCOSE,RANDOM 162 mg/dL (70-110); POTASSIUM 4.1 mmol/L (3.6-5.0); SODIUM 139 mmol/L (132-148); TOTAL PROTEIN 7.6 g/dL (5.8-8.3)
[2016-10-11] MEDS: Insulin Reg-HIGH-Coverage SC SCH ×3 (08:03→21:35)
[2016-10-11] MEDS ORDERED: Propofol 10 mg/ml Inj (20 ML) ONE (09:26)
[2016-10-11] MEDS ORDERED: Iohexol 240 (50 ml) ONE (09:31)
[2016-10-11] MEDS ORDERED: Midazolam 2 MG/2 ML VIAL ONE (10:04)
[2016-10-11] MEDS ORDERED: Desflurane Inhalation Anesthetic Liq (240 ml) ONE (10:05)
[2016-10-11] MEDS: Bupivacaine 0.5% Inj(30mL) ONE ×2 (10:44→11:20)
--- NOTE | 2016-10-11 11:36 | PCM.SURG1 ---
Surgeon's Initial Post Op Note - Surgeon's Notes Surgeon: Dr Daillo Piano Accompanist: Dr Yadav PGY3, Dr Frausto PGY2, Dr Fulton PGY1 Type of Anesthesia: General Endo Pre-Operative Diagnosis: acute cholecystitis Operative Findings: as above Post-Operative Diagnosis: as above. umbilical hernia Operation Performed: laparoscopic cholecystectomy. umbilical hernia repair Specimen/Specimens Removed: gallbladder Estimated Blood Loss: EBL {In ML}: 10 Blood Products Given: N/A Drains Used: No Drains Date of Surgery/Procedure: 10/11/16 Time of Surgery/Procedure: 11:36
--- NOTE | 2016-10-11 11:38 | PN ---
SUBJECTIVE: I see him in his room. He is getting ready for cholecystectomy this morning with Dr. Diallo. He had a procedure with Dr. Childress, I believe yesterday, where they took stones in the gallbladder. He is a diabetic with cholecystitis. He should have a gallbladder taken out. MEDICATIONS: He is on Dilaudid, insulin, morphine, Norvasc, Protonix, IV fluids, Zestril and Zofran. PHYSICAL EXAMINATION: VITAL SIGNS: 98.6 temperature, 61 pulse, 165/72 blood pressure, 20 respiratory rate, and 97% O2 saturation on room air. HEENT: Head is atraumatic and normocephalic. HEART: Regular rate. LUNGS: Decreased breath sounds, but clear. ABDOMEN: Soft and nontender. Positive bowel sounds. EXTREMITIES: No edema. LABORATORY DATA: He has a 5.6 white count, 13.5 hemoglobin and 39.4 hematocrit with 231 platelets. INR is 0.98. Sodium is 139, potassium is 4.1, BUN is 10, creatinine 0.8, GFR is greater than 60, sugar is 162, and calcium is 9.3. Total bilirubin is 1, AST is 142, ALT is 498, and alkaline phosphatase is 152. Troponin is less than 0.01. Total protein is 7.6. Urine is clear. ASSESSMENT AND PLAN: He is being seen by Cardiology, Gastrointestinal and Surgery. The patient is doing very well today. He has gallstones, elevated liver function tests, hypertension, diabetes, a smoker and cholecystitis. He should go for cholecystectomy today and I will see how he does. Jose Manuel Freedman DO MTDD
[2016-10-11] MEDS: HYDROmorphone 0.5 mg/0.5 ml ISec IVP PRN ×2 (11:41→12:00)
[2016-10-11] MEDS ORDERED: HYDROmorphone 0.5 mg/0.5 ml ISec ONE ×2 (11:42→12:00)
[2016-10-11] MEDS ORDERED: Sodium Chloride 0.9% 1,000 ML IV SCH (11:45)
[2016-10-11] MEDS: HYDROmorphone 1 mg/ml ISec IVP PRN (13:31)
--- NOTE | 2016-10-11 16:56 | PN ---
DATE: 10/11/2016 CARDIOLOGY FOLLOWUP SUBJECTIVE: The patient is status post cholecystectomy. He is awake and alert. No shortness of breath. No chest pain. PHYSICAL EXAMINATION: VITAL SIGNS: Blood pressure 148/82, heart rate in the 80s. NECK: Negative JVD. LUNGS: Without rales. HEART: S1 and S2. EXTREMITIES: Without edema. LABORATORY: Hemoglobin is 13.5. Chemistries: LFTs on a descending trend. IMPRESSION: 1. Status post laparoscopic cholecystectomy. 2. History of gallstones. 3. Accelerated hypertension which is improved, post surgery. 4. History of smoking. 5. Diabetes mellitus. PLAN: Given these findings, the patient is hemodynamically stable. We will continue post operative care. Vamshi Sher MD
[2016-10-11] MEDS ORDERED: Oxycodone/Acetaminophen 5/325 mg Tab PO PRN (17:09)
--- NOTE | 2016-10-11 19:59 | PN ---
DATE: 10/11/2016 SUBJECTIVE: This afternoon the patient is status post laparoscopic cholecystectomy. The patient underwent an ERCP yesterday status post sphincterotomy and CBD stone removal. The patient is awake and alert with at the bedside. He is smiling. No reports of any nausea, vomiting. He appears comfortable. No fever or chills. PHYSICAL EXAMINATION: VITAL SIGNS: Temperature is 98.4, blood pressure 148/82, pulse 81, respirations 14, 97% on nasal cannula. HEENT: Sclerae are anicteric. NECK: Supple. CARDIOPULMONARY: S1 and S2. LUNGS: Sounds are clear. ABDOMEN: Bowel sounds soft. are intact. No rebound or guarding. EXTREMITIES: No edema. NEUROLOGIC: Awake, alert and oriented. LABORATORY DATA: His labs today WBC 5.6, H and H and 13.5 and 39.4, platelets is 231. Sodium 139, potassium 4.1, BUN is 10, creatinine is 0.8, his total bilirubin is 1.0, AST 142, ALT 498, alk phos is 152. LFT showed improvement. ASSESSMENT AND PLAN: This is a 51-year-old male with past medical history of hypertension, diabetes mellitus came in with complaints of right upper quadrant and epigastric discomfort. The patient was found to have gallstones and mildly dilated common bile duct and elevated liver enzymes. He is status post ERCP with sphincterotomy and stone retrieval, now undergone a laparoscopic cholecystectomy. PLAN: Diet as per surgery. Continue to trend the liver enzymes, which are improving, his bilirubin is now normal. Low fat diet. The patient is on pain management. Continue GI prophylaxis. He is on Protonix. The patient is on IV fluids for hydration, Zofran p.r.n. nausea, he is also on Reglan. The patient was seen and case discussed with Dr. Childress. MICHI Bhatt MTDChloe
[2016-10-11] MEDS: Morphine 4 mg/ml ISec IVP PRN (20:29)
[2016-10-11] MEDS ORDERED: Pantoprazole 40 mg EC Tab PO STA (20:48)
[2016-10-11 20:58] VITALS: RESP 20
--- NOTE | 2016-10-11 21:10 | CP.PCM.PN ---
Subjective - Date & Time of Evaluation Date of Evaluation: 10/11/16 Time of Evaluation: 21:06 - Subjective Subjective: Patient was seen at bedside. He complained of pain in lower sternal area ,for past 5 minutes, intermittent , no radiation, burning in nature, denies sob,nausea, sweating, palpitation. Staes that he began to have pain after IV site was inserted in left hand dorsum. Has no other complaints now. ROS:Negative except as mentioned above. 51 year old male admitted with RUQ abdominal pain of 2 week duration, biliary colic, cholelithisasi,is S/P laparoscopic cholecystectomy, umbilical herniorrhaphy. Has PMH of DM,HTN, smoking, social drinker,obesity. Objective - Vital Signs/Intake and Output Vital Signs (last 24 hours): Temp Pulse Resp BP Pulse Ox 98.8 F 72 20 147/78 96 10/11/16 20:56 10/11/16 20:56 10/11/16 20:56 10/11/16 20:56 10/11/16 20:56 Intake and Output: 10/11/16 10/12/16 18:59 06:59 Intake Total 0 Output Total 700 Balance -700 - Medications Medications: Current Medications Amlodipine Besylate (Norvasc) 5 mg PO DAILY [facility] Last Admin: 10/11/16 10:09 Dose: Not Given Pantoprazole Sodium (Protonix 40mg Ivpb) 40 mg in 100 mls @ 200 mls/hr IVPB 0600 [facility] Last Admin: 10/11/16 05:07 Dose: 200 mls/hr Sodium Chloride (Sodium Chloride 0.9%) 1,000 mls @ 75 mls/hr IV .[id number] [facility] Insulin Human Regular (Humulin R High) 0 units SC ACHS [facility] PRN Reason: Protocol Last Admin: 10/11/16 15:00 Dose: 2 units Lisinopril (Zestril) 10 mg PO QAM [facility] Last Admin: 10/11/16 10:09 Dose: Not Given Metoclopramide HCl (Reglan) 10 mg IV ONCE PRN PRN Reason: Nausea/Vomiting Morphine Sulfate (Morphine) 4 mg IVP Q4H PRN PRN Reason: Pain, moderate (4-7) Last Admin: 10/11/16 20:29 Dose: 4 mg Ondansetron HCl (Zofran Inj) 4 mg IVP Q4H PRN PRN Reason: Nausea/Vomiting Ondansetron HCl (Zofran Inj) 4 mg IVP ONCE PRN PRN Reason: Nausea/Vomiting Oxycodone/Acetaminophen (Percocet 5/325 Mg Tab) 1 tab PO Q4H PRN PRN Reason: Pain, moderate (4-7) Stop: 10/14/16 17:10 - Labs Labs: 10/11/16 05:20 10/11/16 05:20 PT 10.6 Seconds (9.9-11.8) 10/08/16 19:50 INR 0.98 (0.93-1.08) 10/08/16 19:50 APTT 24.7 Seconds (23.7-30.8) 10/08/16 19:50 Most Recent Lab Values WBC 5.6 10^3/ul (4.5-11.0) D 10/11/16 05:20 RBC 4.54 10^6/uL (3.5-6.1) 10/11/16 05:20 Hgb 13.5 gm/dL (14.0-18.0) L 10/11/16 05:20 Hct 39.4 % (42.0-52.0) L 10/11/16 05:20 MCV 86.8 fL (80.0-105.0) 10/11/16 05:20 MCH 29.7 pg (25.0-35.0) 10/11/16 05:20 MCHC 34.3 g/dl (31.0-37.0) 10/11/16 05:20 RDW 13.0 % (11.5-14.5) 10/11/16 05:20 Plt Count 231 10^3/uL (120.0-450.0) 10/11/16 05:20 MPV 10.6 fl (7.0-11.0) 10/11/16 05:20 Gran % 47.0 % (50.0-68.0) L 10/09/16 07:35 Lymph % (Auto) 31.1 % (22.0-35.0) 10/09/16 07:35 [place] % (Auto) 7.9 % (1.0-6.0) H 10/09/16 07:35 Eos % (Auto) 13.5 % (1.5-5.0) H 10/09/16 07:35 Baso % (Auto) 0.5 % (0.0-3.0) 10/09/16 07:35 Gran # 2.09 (1.4-6.5) 10/09/16 07:35 Lymph # 1.4 (1.2-3.4) 10/09/16 07:35 [place] # 0.4 (0.1-0.6) 10/09/16 07:35 Eos # 0.6 (0.0-0.7) 10/09/16 07:35 Baso # 0.02 K/mm3 (0.0-2.0) 10/09/16 07:35 PT 10.6 Seconds (9.9-11.8) 10/08/16 19:50 INR 0.98 (0.93-1.08) 10/08/16 19:50 APTT 24.7 Seconds (23.7-30.8) 10/08/16 19:50 Sodium 139 mmol/L (132-148) 10/11/16 05:20 Potassium 4.1 mmol/L (3.6-5.0) 10/11/16 05:20 Chloride 102 mmol/L (95-110) 10/11/16 05:20 Carbon Dioxide 23 mmol/L (21-33) 10/11/16 05:20 Anion Gap 18 (10-20) 10/11/16 05:20 BUN 10 mg/dL (7-21) 10/11/16 05:20 Creatinine 0.8 mg/dL (0.5-1.4) 10/11/16 05:20 Est GFR ( Amer) > 60 10/11/16 05:20 Est GFR (Non-Af Amer) > 60 10/11/16 05:20 POC Glucose (mg/dL) 151 mg/dL (65-110) H 10/11/16 16:48 Random Glucose 162 mg/dL (70-110) H 10/11/16 05:20 Calcium 9.3 mg/dL (8.4-10.5) 10/11/16 05:20 Total Bilirubin 1.0 mg/dL (0.2-1.3) 10/11/16 05:20 AST 142 U/L (15-59) H 10/11/16 05:20 ALT 498 U/L (7-56) H 10/11/16 05:20 Alkaline Phosphatase 152 U/L (38-133) H 10/11/16 05:20 Lactate Dehydrogenase 734 U/L (333-699) H 10/09/16 07:11 Total Creatine Kinase 218 U/L (35-230) 10/09/16 07:11 CK-MB (CK-2) 2.7 ng/mL (0.0-3.6) 10/08/16 19:50 CK-MB (CK-2) % Cancelled 10/08/16 19:50 Troponin I < 0.01 ng/mL 10/09/16 22:10 Total Protein 7.6 g/dL (5.8-8.3) 10/11/16 05:20 Albumin 4.3 g/dL (3.0-4.8) 10/11/16 05:20 Globulin 3.3 gm/dL 10/11/16 05:20 Albumin/Globulin Ratio 1.3 (1.1-1.8) 10/11/16 05:20 Amylase 71 U/L (35-125) 10/11/16 05:20 Lipase 128 U/L (23-300) 10/08/16 19:50 Urine Color Yellow (YELLOW) 10/08/16 08:40 Urine Appearance Clear (CLEAR) 10/08/16 08:40 Urine pH 8.0 (4.7-8.0) 10/08/16 08:40 Ur Specific [place] 1.010 (1.005-1.035) 10/08/16 08:40 Urine Protein Negative mg/dL (<30 mg/dL) 10/08/16 08:40 Urine Glucose (UA) Negative mg/dL (NEGATIVE) 10/08/16 08:40 Urine Ketones Negative mg/dL (NEGATIVE) 10/08/16 08:40 Urine Blood Negative (NEGATIVE) 10/08/16 08:40 Urine Nitrate Negative (NEGATIVE) 10/08/16 08:40 Urine Bilirubin Negative (NEGATIVE) 10/08/16 08:40 Urine Urobilinogen 0.2 E.U./dL (<1 E.U./dL) 10/08/16 08:40 Ur Leukocyte Esterase Negative Ines/uL (NEGATIVE) 10/08/16 08:40 Blood Type A POSITIVE 10/10/16 12:00 Blood Type Confirm A POSITIVE 10/10/16 12:30 Antibody Screen Negative 10/10/16 12:00 BBK History Checked No verified bt 10/10/16 12:00 - Constitutional Appears: Well, No Acute Distress - Head Exam Head Exam: ATRAUMATIC, NORMAL INSPECTION, NORMOCEPHALIC - Eye Exam Eye Exam: Normal appearance - ENT Exam ENT Exam: Mucous Membranes Moist - Neck Exam Neck Exam: Normal Inspection - Respiratory Exam Respiratory Exam: NORMAL BREATHING PATTERN - Cardiovascular Exam Cardiovascular Exam: absent: JVD - GI/Abdominal Exam GI & Abdominal Exam: absent: Distended - Rectal Exam Rectal Exam: Deferred - Exam Additional comments: Deferred. - Extremities Exam Extremities Exam: Normal Inspection - Back Exam Back Exam: NORMAL INSPECTION - Neurological Exam Neurological Exam: Alert, Oriented x3 - Psychiatric Exam Psychiatric exam: Normal Affect, Normal Mood - Skin Skin Exam: Normal Color Assessment and Plan - Assessment and Plan (Free Text) Assessment: Chest pain. S/P Laparoscopin cholecystectomy,Umbilical herniorrhaphy. DM. HTN. Obesity. Cholelithiasis. Borderline anemia. Elevated LFT's. Smoker. Social drinker. Plan: EKG stat.------------------------------->NSR, small flipped T waves V2 through V6 which is new. EKG in AM. Troponin Stat.---------------> <0.1. Troponin in AM. Patient received intravenous morphine. Will order protonix 40 mg PO stat.
[2016-10-12] MEDS: Morphine 4 mg/ml ISec IVP PRN ×3 (00:10→10:48)
[2016-10-12] MEDS: Pantoprazole 40mg/100ml IVPB 40 MG/100 ML BAG IVPB SCH (05:30)
[2016-10-12] MEDS: Sodium Chloride 0.9% 1,000 ML IV SCH (05:31)
[2016-10-12 06:30] LABS: HEMATOCRIT 37.4 % (42.0-52.0); MEAN CELL VOLUME 87.6 fL (80.0-105.0); MEAN CORPUSCULAR HEMOGLOBIN 28.8 pg (25.0-35.0); MEAN CORPUSCULAR HGB CONC 32.9 g/dl (31.0-37.0); MEAN PLATELET VOLUME 10.4 fl (7.0-11.0); RED CELL DISTRIBUTION WIDTH 13.3 % (11.5-14.5); WHITE BLOOD COUNT 6.1 10^3/ul (4.5-11.0)
[2016-10-12 06:45] LABS: ALB/GLOB RATIO 1.2 (1.1-1.8); ALKALINE PHOSPHATASE 154 U/L (38-133); ALT/SGPT 514 U/L (7-56); AST/SGOT 246 U/L (15-59); BILIRUBIN,TOTAL 1.1 mg/dL (0.2-1.3); BLOOD UREA NITROGEN 10 mg/dL (7-21); CALCIUM 9.2 mg/dL (8.4-10.5); CARBON DIOXIDE 28 mmol/L (21-33); CHLORIDE 102 mmol/L (98-107); GFR AFRICAN-AMERICAN > 60; GLUCOSE,RANDOM 174 mg/dL (70-110); POTASSIUM 3.7 mmol/L (3.6-5.0); SODIUM 140 mmol/L (132-148); TOTAL PROTEIN 7.4 g/dL (5.8-8.3)
[2016-10-12 06:59] LABS: TROPONIN I < 0.01 ng/mL
--- NOTE | 2016-10-12 07:59 | CP.PCM.PN ---
Subjective - Date & Time of Evaluation Date of Evaluation: 10/12/16 Time of Evaluation: 07:30 - Subjective Subjective: Patient seen and examined at bedside. No acute overnight events. States he has mild abdominal discomfort near the umbilicus. Positive for flatus. Negative for bowel movement. Tolerating diet. Denies fever, chills, chest pain, SOB. Objective - Vital Signs/Intake and Output Vital Signs (last 24 hours): Temp Pulse Resp BP Pulse Ox 98.8 F 61 20 134/80 95 10/12/16 00:01 10/12/16 06:00 10/12/16 00:01 10/12/16 00:01 10/12/16 00:01 Intake and Output: 10/12/16 10/12/16 06:59 18:59 Intake Total 1380 Balance 1380 - Medications Medications: Current Medications Amlodipine Besylate (Norvasc) 5 mg PO DAILY [facility] Last Admin: 10/11/16 10:09 Dose: Not Given Aspirin (Aspirin Chewable) 81 mg PO DAILY [facility] Pantoprazole Sodium (Protonix 40mg Ivpb) 40 mg in 100 mls @ 200 mls/hr IVPB 0600 [facility] Last Admin: 10/12/16 05:30 Dose: 200 mls/hr Sodium Chloride (Sodium Chloride 0.9%) 1,000 mls @ 75 mls/hr IV .[id number] [facility] Last Admin: 10/12/16 05:31 Dose: 75 mls/hr Insulin Human Regular (Humulin R High) 0 units SC ACHS [facility] PRN Reason: Protocol Last Admin: 10/11/16 21:35 Dose: Not Given Lisinopril (Zestril) 10 mg PO QAM [facility] Last Admin: 10/11/16 10:09 Dose: Not Given Metoclopramide HCl (Reglan) 10 mg IV ONCE PRN PRN Reason: Nausea/Vomiting Morphine Sulfate (Morphine) 4 mg IVP Q4H PRN PRN Reason: Pain, moderate (4-7) Last Admin: 10/12/16 06:24 Dose: 4 mg Ondansetron HCl (Zofran Inj) 4 mg IVP Q4H PRN PRN Reason: Nausea/Vomiting Ondansetron HCl (Zofran Inj) 4 mg IVP ONCE PRN PRN Reason: Nausea/Vomiting Oxycodone/Acetaminophen (Percocet 5/325 Mg Tab) 1 tab PO Q4H PRN PRN Reason: Pain, moderate (4-7) Stop: 10/14/16 17:10 - Labs Labs: 10/12/16 05:30 10/12/16 05:30 PT 10.6 Seconds (9.9-11.8) 10/08/16 19:50 INR 0.98 (0.93-1.08) 10/08/16 19:50 APTT 24.7 Seconds (23.7-30.8) 10/08/16 19:50 - Additional Findings Additional findings: - Constitutional Appears: Well, No Acute Distress - Head Exam Head Exam: ATRAUMATIC, NORMAL INSPECTION, NORMOCEPHALIC - Eye Exam Eye Exam: Normal appearance - ENT Exam ENT Exam: Mucous Membranes Moist - Neck Exam Neck Exam: Normal Inspection - Respiratory Exam Respiratory Exam: NORMAL BREATHING PATTERN - Cardiovascular Exam Cardiovascular Exam: absent: JVD - GI/Abdominal Exam GI & Abdominal Exam: bandages clean, dry, and appropriately positioned - Rectal Exam Rectal Exam: Deferred - Exam Additional comments: Deferred. - Extremities Exam Extremities Exam: Normal Inspection - Back Exam Back Exam: NORMAL INSPECTION - Neurological Exam Neurological Exam: Alert, Oriented x3 - Psychiatric Exam Psychiatric exam: Normal Affect, Normal Mood - Skin Skin Exam: Normal Color Assessment and Plan - Assessment and Plan (Free Text) Assessment: 51 male POD # 1 s/p laparoscopic cholecystectomy and umbilical hernia repair. * Regular diet * Pain control * IVF * OOB * IS * DVT ppx * clear for dc from surgery standpoint Will SWETA Diallo
[2016-10-12] MEDS: Insulin Reg-HIGH-Coverage SC SCH ×2 (08:41→13:48)
[2016-10-12 09:19] VITALS: BP 152/84
[2016-10-12 10:30] VITALS: TEMP 98.6; O2SAT 97
[2016-10-12 13:51] VITALS: PULSE 80
--- NOTE | 2016-10-12 13:59 | PN ---
DATE: SUBJECTIVE: Seen and examined at the bedside this morning. The patient did report some pain last night, but he is bit better this morning. He did pass some gas yesterday. No BM yet. Denies any nausea or vomiting. He just ate solid breakfast. No reports of any overt GI bleed. No fever or chills or reports of any acute overnight events. PHYSICAL EXAMINATION VITAL SIGNS: Temperature is 98.6, blood pressure 152/84, pulse 76 and respirations 20 and 97%room air. HEENT: Sclera is anicteric. NECK: Supple. CARDIAC: S1 and S2. LUNGS: Clear. ABDOMEN: With bowel sounds, soft. Some midabdominal tenderness, but no rebound or guarding. His dressing in the umbilical area is dry and intact. EXTREMITIES: Positive pedal pulses. No edema. NEUROLOGIC: Awake, alert, and oriented. LABORATORY DATA: Today, WBC is 6.1, his H&H is 12.3 and 37.4, platelets 232. Sodium 140, K 3.7, BUN 10, creatinine 0.9. His total bilirubin is 1.1, AST 246, ALT 514, alk phos is 154. His LFTs are showing a downward trend. ASSESSMENT: This is a 51-year-old male who is postoperative day #1, status post a laparoscopic cholecystectomy with umbilical hernia repair, came in with complaint of right upper quadrant pain and epigastric discomfort, found to have gallstones and mildly dilated common bile duct and elevated liver enzymes. He had any ERCP with sphincterotomy and stone, common bile duct stone extraction. His other comorbidities are hypertension and diabetes mellitus. PLAN: Continue diet as tolerated. Would recommend low fat diet. Continue to monitor liver enzymes, which is showing a downward trend. The patient is discharged today. Follow up surgical team as an outpatient. The patient was seen and case discussed with Dr. Childress. MICHI Bhatt
--- NOTE | 2016-10-12 16:05 | CARD ---
APPROVED REPORT EKG Measurement Heart [id number] MT [id number] <Conclusion> Normal sinus rhythm Nonspecific T wave abnormality
--- NOTE | 2016-10-12 16:36 | CARD ---
APPROVED REPORT EKG Measurement Heart [id number] TN 154P57 [id number] <Conclusion> Normal sinus rhythm STTW changes c/w ischemia
--- NOTE | 2016-10-13 02:27 | DS ---
HISTORY OF PRESENT ILLNESS: The patient is doing much better today. He had his gallbladder removed yesterday and the day before he had endoscopy, taking out the gallstones with GI. He is resting comfortably. He did complain of chest pain and abdominal pain with high LFTs. He had endoscopy that revealed gallstones and he had his gallbladder removed yesterday. He is doing much better. Discussed with surgery that he can be discharged today. PHYSICAL EXAMINATION: GENERAL: He feels comfortable in bed, little bit of pain but not bad. VITAL SIGNS: He has got 98.8 temp, 66 pulse, 134/80 blood pressure, 20 respiratory rate and 95% O2 sat on room air. HEENT: Head is atraumatic and normocephalic. Throat is moist. NECK: Supple. HEART: Regular rate. LUNGS: Clear to auscultation. ABDOMEN: Soft, positive bowel sounds. Tenderness over the surgical area, but not bad. EXTREMITIES: Have no edema. MEDICATIONS: He is currently aspirin; morphine, which was stopped; Norvasc; Percocet, which he will stop; Protonix; Reglan; IV fluids, which was stopped; Zestril and Zofran, he is eating, does not need it. LABORATORY DATA: He has 6.1 white count, 12.3 hemoglobin, 37.4 hematocrit with 232 platelets. Sodium 140, potassium 3.7, BUN 10, creatinine 0.9, GFR is greater than 60, sugar is 174 and 167, calcium 9.2, AST is 246, ALT is 514 and alkaline phosphatase is 154, much better than when he came in. Troponins were all less than 0.01. Total protein is 7.4 and albumin is 4. DISCHARGE PLAN: He is being seen by surgery, GI and cardiology. He will be discharged today. He will follow up with me in 5 days in the office. He is status post ERCP with sphincterotomy and stone removal and has undergone laparoscopic cholecystectomy and elevated liver enzymes, which are improving. He will see me in the office in about 5 to 7 days. Jose Manuel Freedman DO
--- NOTE | 2016-10-13 09:39 | CARD ---
APPROVED REPORT EKG Measurement Heart [id number] CO 160P43 [id number] <Conclusion> Normal sinus rhythm STTW changes c/w ischemia, new
--- NOTE | 2016-10-14 17:50 | RAD ---
PROCEDURE: ERCP HISTORY: ? CBD OBST COMPARISON: None TECHNIQUE: Standard protocol for this study/examination. FINDINGS: Total fluoroscopic time (continuous mode) utilized during the procedure: 6 minutes 41 seconds. IMPRESSION: Submitted images from the current procedure: 8.0
--- NOTE | 2016-11-24 16:54 | OP ---
PREOPERATIVE DIAGNOSIS: Acute on chronic cholecystitis. POSTOPERATIVE DIAGNOSIS: Acute on chronic cholecystitis. OPERATION PERFORMED: Laparoscopic cholecystectomy. DESCRIPTION OF PROCEDURE: In the operating room, the patient was identified by name, name of procedure, laterality, my juan jose and the consent. The abdomen was prepped and draped in the usual manner, having had an ERCP on 10/10. The abdomen was accessed through a supraumbilical incision followed by the Veress needle, by the Visiport. The abdomen was entered without issue, the gallbladder was inflamed. The omentum was brought down by dissection using ports and xyphoid and two lateral 5s. The gallbladder was emptied. The gallbladder was pulled up by the fundus and infundibulum and the peritoneum over the distal gallbladder was pulled down exposing the cystic duct and artery that were cleaned circumferentially exposing the liver beneath. The cyst duct having achieved the view of safety was divided using the clips. Doubly clipped thus was the artery and the gallbladder taken off liver bed using the Harmonic, placed in the bag and removed through the umbilicus. Wound was irrigated and dried. There was nothing untoward to the liver bed, the hilar structures or the intestine, abdomen, stomach, etc. The CO2 was removed, the incision was closed with under direct vision using a Vicryl. Incision was injected with Marcaine followed by subcuticular PDS. The patient was dressed with Dermabond and taken to recovery room in good condition after sponge and needle count was declared correct. Audi Diallo MD
== END 2016-10-12 14:34 | disposition home or self-care (01) | DRG 419 ==
LOC: ED 19:08 → ERH 22:40 → 2RNO 10-09 02:16 → 3RNO 10-11 12:59
PROVIDERS: ADMIT Family Medicine; ATTEND Family Medicine
PROC: BF43ZZZ Ultrasonography of Gallbladder and Bile Ducts (ICD-10-PCS; 2016-10-10)
PROC: 0FC98ZZ Extirpation of Matter from Common Bile Duct, Via Natural or Artificial Opening Endoscopic (ICD-10-PCS; 2016-10-10 14:30)
PROC: 0F798ZZ Dilation of Common Bile Duct, Via Natural or Artificial Opening Endoscopic (ICD-10-PCS; 2016-10-10 14:30)
PROC: 0DJ08ZZ Inspection of Upper Intestinal Tract, Via Natural or Artificial Opening Endoscopic (ICD-10-PCS; 2016-10-10 14:30)
PROC: 0WQF4ZZ Repair Abdominal Wall, Percutaneous Endoscopic Approach (ICD-10-PCS; 2016-10-11)
PROC: 0FT44ZZ Resection of Gallbladder, Percutaneous Endoscopic Approach (ICD-10-PCS; principal; 2016-10-11 08:30)
DX: K80.66 Calculus of gallbladder and bile duct with acute and chronic cholecystitis without obstruction (principal); I10 Essential (primary) hypertension; E11.9 Type 2 diabetes mellitus without complications; Z79.84 Long term (current) use of oral hypoglycemic drugs; R07.9 Chest pain, unspecified; K42.9 Umbilical hernia without obstruction or gangrene; R74.8 Abnormal levels of other serum enzymes; F17.210 Nicotine dependence, cigarettes, uncomplicated; Z91.19 Patient's noncompliance with other medical treatment and regimen; E66.9 Obesity, unspecified; Z68.30 Body mass index [BMI] 30.0-30.9, adult

== ENCOUNTER 2016-11-25 16:02 | Emergency (ER) | payer BC ==
[2016-11-25 16:06] VITALS: BMI 30.8
[2016-11-25 16:11] VITALS: TEMP 98.8
[2016-11-25] MEDS ORDERED: Sodium Chloride 0.9% 1,000 ML IV STA (16:40)
[2016-11-25 17:33] LABS: BASO # 0.01 K/mm3 (0.0-2.0); BASO % 0.1 % (0.0-3.0); EOS # 0.5 (0.0-0.7); EOS % 6.8 % (1.5-5.0); GRAN # 3.64 (1.4-6.5); GRAN % 54.2 % (50.0-68.0); LYMPH # 2.1 (1.2-3.4); LYMPH % 31.6 % (22.0-35.0); MEAN CELL VOLUME 86.4 fl (80.0-105.0); MEAN CORPUSCULAR HEMOGLOBIN 28.8 pg (25.0-35.0); MEAN CORPUSCULAR HGB CONC 33.3 g/dl (31.0-37.0); MEAN PLATELET VOLUME 10.2 fl (7.0-11.0); MONO # 0.5 (0.1-0.6); MONO % 7.3 % (1.0-6.0); RED CELL DISTRIBUTION WIDTH 12.8 % (11.5-14.5); URINE BILIRUBIN NEGATIVE (NEGATIVE); URINE BLOOD NEGATIVE (NEGATIVE); URINE GLUCOSE (UA) NEGATIVE (NEGATIVE); URINE KETONE NEGATIVE (NEGATIVE); URINE LEUKOCYTE ESTERASE NEGATIVE Leu/uL (NEGATIVE); URINE PROTEIN NEGATIVE mg/dL (<30 mg/dL); URINE UROBILINOGEN 0.2 E.U./dL (<1 E.U./dL); WHITE BLOOD COUNT 6.7 10^3/ul (4.5-11.0)
[2016-11-25 17:35] LABS: URINE APPEARANCE CLEAR (CLEAR); URINE COLOR LIGHT YELLOW (YELLOW)
--- NOTE | 2016-11-25 17:40 | ED PDOC ---
Arrival/HPI - General Chief Complaint: Abdominal Pain Time Seen by Provider: 11/25/16 16:15 Historian: Patient - History of Present Illness Narrative History of Present Illness (Text): 11/25/16 16:55 A 51 year old female, whose past medical history includes diabetes mellitus non- insulin-dependent, presents to the emergency department complaining of RLQ abdominal pain for 3 days. Patient reports PMD refered him to ER. Also, he mentions recently having a cholecystectomy. Patient notes experiencing mild nausea but denies of any fever, vomiting, hematuria, or any other complaints. PMD: Dr. Freedman Time/Duration: > week (3 days) Symptom Onset: Sudden Symptom Course: Unchanged Past Medical History - Provider Review Nursing Documentation Reviewed: Yes - Infectious Disease Hx of Infectious Diseases: None - Cardiac Hx Hypertension: Yes - Pulmonary Hx Respiratory Disorders: No - Neurological Hx Paralysis: No - Endocrine/Metabolic Hx Diabetes Mellitus Type 2: Yes - Hematological/Oncological Hx Blood Transfusions: No Hx Blood Transfusion Reaction: No - Integumentary Hx Dermatological Disorder: No - Musculoskeletal/Rheumatological Hx Musculoskeletal Disorders: No - Genitourinary/Gynecological Hx Genitourinary Disorders: No - Psychiatric Hx Emotional Abuse: No Hx Physical Abuse: No Hx Substance Use: No - Surgical History Hx Cholecystectomy: Yes (october 13, 2016) - Anesthesia Hx Anesthesia Reactions: No Hx Malignant Hyperthermia: No - Suicidal Assessment Feels Threatened In Home Enviroment: No Family/Social History - Physician Review Nursing Documentation Reviewed: Yes Family/Social History: No Known Family HX Smoking Status: Never Smoked Hx Alcohol Use: No Hx Substance Use: No Allergies/Home Meds Allergies/Adverse Reactions: Allergies No Known Allergies Allergy (Verified 10/05/12 10:52) Home Medications: Home Meds Medication Instructions Recorded Confirmed Glipizide 10 mg PO DAILY 04/10/15 11/25/16 Lisinopril [Zestril] 10 mg PO QAM 04/10/15 11/25/16 MetFORMIN [glucoPHAGE] 1,000 mg PO BID 04/10/15 11/25/16 amLODIPine [Norvasc] 5 mg PO DAILY 05/03/15 11/25/16 Review of Systems - Physician Review All systems were reviewed & negative as marked: Yes - Review of Systems Constitutional: absent: Fevers Gastrointestinal: Abdominal Pain (RLQ pain), Nausea (mild nausea). absent: Vomiting Genitourinary Male: absent: Hematuria Physical Exam Vital Signs Reviewed: Yes Vital Signs Temp Pulse Resp BP Pulse Ox 11/25/16 21:24 72 17 132/75 99 11/25/16 20:12 75 18 130/78 98 11/25/16 18:09 70 18 132/80 99 11/25/16 16:03 98.8 F 72 18 135/78 98 Temperature: Afebrile Blood Pressure: Normal Pulse: Regular Respiratory Rate: Normal Appearance: Positive for: Well-Appearing, Non-Toxic, Comfortable Pain Distress: None Mental Status: Positive for: Alert and Oriented X 3 - Systems Exam Head: Present: Atraumatic, Normocephalic Pupils: Present: PERRL Extroacular Muscles: Present: EOMI Conjunctiva: Present: Normal Mouth: Present: Moist Mucous Membranes Neck: Present: Normal Range of Motion Respiratory/Chest: Present: Clear to Auscultation, Good Air Exchange. No: Respiratory Distress, Accessory Muscle Use Cardiovascular: Present: Regular Rate and Rhythm, Normal S1, S2. No: Murmurs Abdomen: Present: Tenderness (RLQ tenderness), Hernias (small umbilical hernia) Back: Present: Normal Inspection Upper Extremity: Present: Normal Inspection. No: Cyanosis, Edema Lower Extremity: Present: Normal Inspection. No: Edema Neurological: Present: GCS=15, CN II-XII Intact, Speech Normal Skin: Present: Warm, Dry, Normal Color. No: Rashes Psychiatric: Present: Alert, Oriented x 3, Normal Insight, Normal Concentration Medical Decision Making ED Course and Treatment: 11/25/16 17:00 Impression: 51 year old male with RLQ pain. Physical exam shows small umbilical hernia and RLQ abdominal tenderness. Plan: -- Abd/Pelvis CT -- Labs -- IV Fluids -- Urine Culture -- Urinalysis -- Reassess and disposition Prior Visits: Notes and results from previous visits were reviewed. Patient was last seen in the emergency department on 10/09/2016 for RUQ pain. Progress Notes: 11/25/2016 20:39 Abd/Pelvis CT IMPRESSION: Findings within the cecum which may represent right-sided diverticulitis versus inflammatory bowel disease. The the remote possibility of acute appendicitis should also be within the differential diagnosis, however given the proximity to the appendix, this is less likely. Dictator: Umm Maldonado MD - Lab Interpretations Lab Results: 11/25/16 17:00 11/25/16 17:00 Lab Results 11/25/16 17:00: Sodium 141, Potassium 3.4 L, Chloride 104, Carbon Dioxide 26, Anion Gap 14, BUN 9, Creatinine 0.7, Est GFR ( Amer) > 60, Est GFR (Non- Af Amer) > 60, Random Glucose 96, Calcium 9.1, Total Bilirubin 0.4, AST 18, ALT 31, Alkaline Phosphatase 54, Total Protein 6.9, Albumin 4.0, Globulin 2.9, Albumin/Globulin Ratio 1.4, Lipase 63 11/25/16 17:00: Urine Color Light yellow, Urine Appearance Clear, Urine pH 7.0, Ur Specific [place] <= 1.005, Urine Protein Negative, Urine Glucose (UA) Negative, Urine Ketones Negative, Urine Blood Negative, Urine Nitrate Negative, Urine Bilirubin Negative, Urine Urobilinogen 0.2, Ur Leukocyte Esterase Negative 11/25/16 17:00: WBC 6.7, RBC 3.82, Hgb 11.0 L, Hct 33.0 L, MCV 86.4, MCH 28.8, MCHC 33.3, RDW 12.8, Plt Count 223, MPV 10.2, Gran % 54.2, Lymph % (Auto) 31.6, [place] % (Auto) 7.3 H, Eos % (Auto) 6.8 H, Baso % (Auto) 0.1, Gran # 3.64, Lymph # 2.1, [place] # 0.5, Eos # 0.5, Baso # 0.01 I have reviewed the lab results: Yes - RAD Interpretation Radiology Orders: 11/25/16 16:41 ABD & PELVIS IV CONTRAST ONLY [CT] Stat - Medication Orders Current Medication Orders: Discontinued Medications Ciprofloxacin (Cipro) 500 mg PO STAT STA PRN Reason: Protocol Stop: 11/25/16 21:06 Last Admin: 11/25/16 21:23 Dose: 500 mg Sodium Chloride (Sodium Chloride 0.9%) 1,000 mls @ 100 mls/hr IV .Q10H STA Stop: 11/26/16 02:39 Last Admin: 11/25/16 17:12 Dose: 100 mls/hr Iohexol (Omnipaque 350 100 Ml) Confirm Administered Dose 350 mg .ROUTE .STK-MED ONE Stop: 11/25/16 18:09 Metronidazole (Flagyl) 500 mg PO STAT STA PRN Reason: Protocol Stop: 11/25/16 21:06 Last Admin: 11/25/16 21:23 Dose: 500 mg - Anibalibvitaly Statement The provider has reviewed the documentation as recorded by the Marciano Del Valle Provider Anibalibe Attestation: All medical record entries made by the Anibalibvitaly were at my direction and personally dictated by me. I have reviewed the chart and agree that the record accurately reflects my personal performance of the history, physical exam, medical decision making, and the department course for this patient. I have also personally directed, reviewed, and agree with the discharge instructions and disposition. Disposition/Present on Arrival - Present on Arrival Any Indicators Present on Arrival: No History of DVT/PE: No History of Uncontrolled Diabetes: No Urinary Catheter: No History of Decub. Ulcer: No History Surgical Site Infection Following: None - Disposition Have Diagnosis and Disposition been Completed?: Yes Diagnosis: Diverticulitis Disposition: HOME/ ROUTINE Disposition Time: 20:40 Condition: GOOD Discharge Instructions (ExitCare): Diverticulitis (ED) Additional Instructions: Thank you for letting us take care of you today. Your provider was Dr. Dorado. You were treated for abdominal pain/diverticulitis. The emergency medical care you received today was directed at your acute symptoms. If you were prescribed any medication, please fill it and take as directed. It may take several days for your symptoms to resolve. Return to the Emergency Department if your symptoms worsen, do not improve, or if you have any other problems. Please contact your doctor or call one of the physicians/clinics you have been referred to that are listed on the Patient Visit Information form that is included in your discharge packet. Bring any paperwork you were given at discharge with you along with any medications you are taking to your follow up visit. Our treatment cannot replace ongoing medical care by a primary care provider (PCP) outside of the emergency department. Thank you for allowing the [facility] team to be part of your care today. Follow up with Dr. rFeedman in 2-3 days for re-evaluation and further management. Prescriptions: Ciprofloxacin [Cipro] 500 mg PO BID #20 tab Ibuprofen [Motrin] 600 mg PO Q6 PRN #20 tab PRN Reason: Pain, Moderate (4-7) metroNIDAZOLE [Flagyl] 500 mg PO Q8 #30 tab Referrals: Jose Manuel Freedman, [Primary Care Provider] - Follow up with primary Forms: [employer] ([place])
[2016-11-25 17:42] LABS: ALB/GLOB RATIO 1.4 (1.1-1.8); ALKALINE PHOSPHATASE 54 U/L (38-126); ALT/SGPT 31 U/L (7-56); AST/SGOT 18 U/L (17-59); BILIRUBIN,TOTAL 0.4 mg/dL (0.2-1.3); BLOOD UREA NITROGEN 9 mg/dL (7-21); CALCIUM 9.1 mg/dL (8.4-10.5); CARBON DIOXIDE 26 mmol/L (21-33); CHLORIDE 104 mmol/L (98-107); GFR AFRICAN-AMERICAN > 60; GLUCOSE,RANDOM 96 mg/dL (70-110); LIPASE 63 U/L (23-300); POTASSIUM 3.4 mmol/L (3.6-5.0); SODIUM 141 mmol/L (132-148); TOTAL PROTEIN 6.9 g/dL (5.8-8.3)
[2016-11-25] MEDS ORDERED: Iohexol 350 MG/100 ML VIAL ONE (18:08)
--- NOTE | 2016-11-25 20:39 | CT ---
EXAM: CT Abdomen and Pelvis With Intravenous Contrast CLINICAL HISTORY: 51 years old, male; Pain; Abdominal pain; Acute; Prior surgery; Surgery date: 1-6 months; Surgery type: Gallbladder; Additional info: Rlq tenderness TECHNIQUE: Axial computed tomography images of the abdomen and pelvis with intravenous contrast. All CT scans at this facility use one or more dose reduction techniques, viz.: automated exposure control; ma/kV adjustment per patient size (including targeted exams where dose is matched to indication; i.e. head); or iterative reconstruction technique. Coronal and sagittal reformatted images were created and reviewed. CONTRAST: 100 mL of omni 350 administered intravenously. COMPARISON: CT - ABD PELVIS IV CONTRAST ONLY 11/24/2015 9:16:26 PM FINDINGS: Lower thorax: Dependent, bibasilar atelectasis, increased from previous examination. ABDOMEN: Liver: The liver is enlarged. Gallbladder and bile ducts: The gallbladder is surgically absent. No significant intra- or extrahepatic biliary ductal dilation. Pancreas: Enhances homogeneously. No ductal dilation. No discrete mass. Spleen: No acute findings. Adrenals: No acute findings. Kidneys and ureters: No acute findings. No hydronephrosis or renal calculi. No discrete solid mass. PELVIS: Bladder: No acute findings. Reproductive: No acute findings. Appendix: The air filled appendix is of normal caliber (series 2, image 144; series 601, image 46) . ABDOMEN and PELVIS: Stomach and bowel: No obstruction. Mural thickening with adjacent inflammatory change is identified within the cecum/ascending colon, with surrounding inflammatory change. This is an interval change from previous examination performed 11/24/2015. The center of this inflammation appears to involve a single diverticulum, just above the ileocecal valve. Peritoneum: As above. Lymph nodes: No pathologically enlarged lymph nodes. Vasculature: Unremarkable. Bones: No acute fracture. IMPRESSION: Findings within the cecum which may represent right-sided diverticulitis versus inflammatory bowel disease. The the remote possibility of acute appendicitis should also be within the differential diagnosis, however given the proximity to the appendix, this is less likely.
[2016-11-25 21:25] VITALS: BP 132/75; PULSE 72; RESP 17; O2SAT 99
== END 2016-11-25 21:25 | disposition home or self-care (01) ==
LOC: ED 16:02
DX: K57.92 Diverticulitis of intestine, part unspecified, without perforation or abscess without bleeding (principal); E11.9 Type 2 diabetes mellitus without complications; I10 Essential (primary) hypertension
CPT/HCPCS: 74177; 80053; 81003; 83690; 85025; 87086; 99285; J7040; Q9967

== ENCOUNTER 2018-03-08 09:42 | Emergency (ER) | payer BC ==
[2018-03-08 09:42] VITALS: BMI 30.8
[2018-03-08 09:59] VITALS: RESP 18
--- NOTE | 2018-03-08 10:07 | ED PDOC ---
Arrival/HPI - General Chief Complaint: Trauma Time Seen by Provider: 03/08/18 09:46 Historian: Patient - History of Present Illness Narrative History of Present Illness (Text): 03/08/18 10:04 52yo male with pmhx of hypertension and DM who present with complaint of facial and right sided neck pain s/p trauma yesterday. Patient states upper part of a window fell and landed on his forehead and nose yesterday, while cleaning the w indow. states he sustained abrasion and nose bleed yesterday yesterday. He cleaned the wound and applied topical antibiotics. States he came to ED today for the persistent pain. He took Ibuprofen yesterday with some relieve. Denies headache, focal weakness, visual changes, paresthesia, any other complaint. Past Medical History - Provider Review Nursing Documentation Reviewed: Yes - Infectious Disease Hx of Infectious Diseases: None - Cardiac Hx Cardiac Disorders: Yes Hx Hypertension: Yes - Pulmonary Hx Respiratory Disorders: No - Neurological Hx Paralysis: No - Endocrine/Metabolic Hx Diabetes Mellitus Type 2: Yes - Hematological/Oncological Hx Blood Transfusions: No Hx Blood Transfusion Reaction: No - Integumentary Hx Dermatological Disorder: No - Musculoskeletal/Rheumatological Hx Musculoskeletal Disorders: No - Genitourinary/Gynecological Hx Genitourinary Disorders: No - Psychiatric Hx Emotional Abuse: No Hx Physical Abuse: No Hx Substance Use: No - Surgical History Hx Cholecystectomy: Yes (october 13, 2016) - Anesthesia Hx Anesthesia: Yes Hx Anesthesia Reactions: No Hx Malignant Hyperthermia: No - Suicidal Assessment Feels Threatened In Home Enviroment: No Family/Social History - Physician Review Nursing Documentation Reviewed: Yes Family/Social History: Unknown Family HX Smoking Status: Never Smoked Hx Alcohol Use: No Hx Substance Use: No Allergies/Home Meds Allergies/Adverse Reactions: Allergies No Known Allergies Allergy (Verified 03/08/18 09:58) Home Medications: Home Meds Medication Instructions Recorded Confirmed RX: Glipizide 10 mg PO DAILY 04/10/15 03/08/18 RX: Lisinopril [Zestril] 10 mg PO QAM 04/10/15 03/08/18 RX: MetFORMIN [glucoPHAGE] 1,000 mg PO BID 04/10/15 03/08/18 RX: amLODIPine [Norvasc] 5 mg PO DAILY 05/03/15 03/08/18 Review of Systems - Physician Review All systems were reviewed & negative as marked: Yes - Review of Systems Constitutional: Normal Eyes: Normal ENT: Normal Respiratory: Normal Cardiovascular: Normal Gastrointestinal: Normal Genitourinary Male: Normal Musculoskeletal: Neck Pain Skin: Normal Neurological: Normal Endocrine: Normal Hemo/Lymphatic: Normal Psychiatric: Normal Physical Exam Vital Signs Reviewed: Yes Vital Signs Temp Pulse Resp BP Pulse Ox 03/08/18 09:54 98.8 F 70 18 145/88 97 Temperature: Afebrile Blood Pressure: Normal Pulse: Regular Respiratory Rate: Normal Appearance: Positive for: Well-Appearing, Non-Toxic, Comfortable Pain Distress: None Mental Status: Positive for: Alert and Oriented X 3 - Systems Exam Head: Present: Atraumatic, Normocephalic Pupils: Present: PERRL Extroacular Muscles: Present: EOMI Conjunctiva: Present: Normal Mouth: Present: Moist Mucous Membranes Nose (External): Present: Abrasion (approximately 0.5cm linear abrasion noted on nose bridge), Other (TTP over the nasal bridge) Nose (Internal): Present: Normal Inspection. No: No Active Bleeding Neck: Present: Normal Range of Motion, Paraspinal Tenderness (Mild right sided paracervical tenderness). No: MIDLINE TENDERNESS Respiratory/Chest: Present: Clear to Auscultation, Good Air Exchange. No: Respiratory Distress, Accessory Muscle Use Cardiovascular: Present: Regular Rate and Rhythm, Normal S1, S2. No: Murmurs Abdomen: No: Tenderness, Distention, Peritoneal Signs Back: Present: Normal Inspection Upper Extremity: Present: Normal Inspection. No: Cyanosis, Edema Lower Extremity: Present: Normal Inspection. No: Edema Neurological: Present: GCS=15, CN II-XII Intact, Speech Normal Skin: Present: Warm, Dry, Normal Color. No: Rashes Psychiatric: Present: Alert, Oriented x 3, Normal Insight, Normal Concentration Medical Decision Making ED Course and Treatment: 03/08/18 10:10 52yo male in ED for facial and neck pain s/p trauma yesterday. Maxillofacial CT and Cervical spine xray Tramadol Reassess and disposition 03/08/18 19:[address] IMPRESSION: Unremarkable non contrast enhanced CT of the maxillofacial bones. Cervical spine IMPRESSION: Normal cervical spine radiographs Pt's pain improved in ED. result was DW the pt and he was referred to ortho/PMD. - RAD Interpretation Radiology Orders: 03/08/18 10:02 MAXILLOFACIAL W/O CONTRAST [CT] Stat CERVICAL SPINE >18YR W/OBLIQUE [RAD] Stat - Medication Orders Current Medication Orders: Tramadol HCl (Ultram) 50 mg PO STAT STA Stop: 03/08/18 10:04 Disposition/Present on Arrival - Present on Arrival Any Indicators Present on Arrival: No History of DVT/PE: No History of Uncontrolled Diabetes: No Urinary Catheter: No History of Decub. Ulcer: No History Surgical Site Infection Following: None - Disposition Have Diagnosis and Disposition been Completed?: Yes Diagnosis: Facial pain, Neck sprain Disposition: HOME/ ROUTINE Disposition Time: 11:10 Patient Plan: Discharge Condition: STABLE Discharge Instructions (ExitCare): Headache, Adult (DC) Additional Instructions: Follow up with your doctor Return to ED for any new or worsening symptoms Prescriptions: RX: Ibuprofen [Motrin Tab] 600 mg PO Q6 #20 tab Referrals: Jose Manuel Freedman DO [Family Provider] - Follow up with primary Forms: [employer] ([place])
--- NOTE | 2018-03-08 10:54 | RAD ---
Date of service: 03/08/2018 PROCEDURE: Cervical Spine Radiographs. HISTORY: Pain. COMPARISON: None available. FINDINGS: BONES: Alignment maintained. No fracture. Dens Intact. DISC SPACES: There is disc degeneration at C5-6 SOFT TISSUES: Normal. No prevertebral soft tissue swelling. OTHER FINDINGS: None. IMPRESSION: Normal cervical spine radiographs
--- NOTE | 2018-03-08 11:06 | CT ---
Date of service: 03/08/2018 PROCEDURE: CT MAXILLOFACIAL BONES WITHOUT CONTRAST HISTORY: nose/forehead pain s/p trauma COMPARISON: None available. TECHNIQUE: Contiguous axial CT images of the maxillofacial bones were obtained. Coronal and sagittal reformats were generated. Radiation dose: Total exam DLP = 821.77 mGy-cm. This CT exam was performed using one or more of the following dose reduction techniques: Automated exposure control, adjustment of the mA and/or kV according to patient size, and/or use of iterative reconstruction technique. FINDINGS: NASAL BONES: Unremarkable. ORBITS: Unremarkable. PARANASAL SINUSES/ MASTOIDS: Clear. MAXILLA: Unremarkable. MANDIBLE/ TEMPOROMANDIBULAR JOINTS: Unremarkable. SKULL BASE: Unremarkable. TEMPORAL BONES: Middle ears and mastoid grossly unremarkable. OTHER FINDINGS: None. IMPRESSION: Unremarkable non contrast enhanced CT of the maxillofacial bones.
[2018-03-08 11:26] VITALS: BP 146/86; PULSE 72; TEMP 98.2; O2SAT 98
== END 2018-03-08 11:27 | disposition home or self-care (01) ==
LOC: ED 09:42
DX: R51 Headache (principal); S13.9XXA Sprain of joints and ligaments of unspecified parts of neck, initial encounter; W20.8XXA Other cause of strike by thrown, projected or falling object, initial encounter; Y93.E9 Activity, other interior property and clothing maintenance; E11.9 Type 2 diabetes mellitus without complications; I10 Essential (primary) hypertension

== ENCOUNTER 2018-04-28 11:31 | Emergency (ER) | payer BC ==
[2018-04-28 11:31] VITALS: BMI 30.8
[2018-04-28 12:30] VITALS: TEMP 98.5; O2SAT 98
[2018-04-28 12:44] VITALS: RESP 18
[2018-04-28 13:56] VITALS: BP 148/74; PULSE 75
--- NOTE | 2018-04-28 14:00 | ED PDOC ---
History of Present Illness History of Present Illness: A 52 year old male, whose past medical history includes diabetes and hypertension, presents to the emergency department complaining of headache, weakness, and fatigue since last night. Patient reports 2 weeks ago, patient had a cold and went to see his PMD. Patient mentioned at the time also having nosebleeds. Patient was prescribed antibiotics, however would continue to have nosebleeds whenever sneezing. He mentions yesterday afternoon he began experiencing body aches, tactile fever and had 5 episodes of diarrhea. Later in the evening, patient began experiencing frontal headache, generalized weakness, and fatigue. Patient denies worst h/a of life or thunderclap onset of h/a, visua l changes, neck pain/stiffness, dizziness, syncope, abdominal pain, chills or any other complaints at this time. HPI: Influenza Time Seen by Provider: 04/28/18 13:06 Chief Complaint: Flu-like Symptoms Past Medical History - Provider Review Nursing Documentation Reviewed: Yes - Infectious Disease Hx of Infectious Diseases: None - Cardiac Hx Cardiac Disorders: Yes Hx Hypertension: Yes Hx Pacemaker: No - Pulmonary Hx Respiratory Disorders: No - Neurological Hx Neurological Disorder: No - HEENT Hx HEENT Disorder: No - Renal Hx Renal Disorder: No - Endocrine/Metabolic Hx Endocrine Disorders: Yes Hx Diabetes Mellitus Type 2: Yes - Hematological/Oncological Hx Blood Disorders: No - Integumentary Hx Dermatological Disorder: No - Musculoskeletal/Rheumatological Hx Musculoskeletal Disorders: No - Gastrointestinal Hx Gastrointestinal Disorders: No - Genitourinary/Gynecological Hx Genitourinary Disorders: No - Psychiatric Hx Psychophysiologic Disorder: No Hx Emotional Abuse: No Hx Physical Abuse: No Hx Substance Use: No - Surgical History Hx Cholecystectomy: Yes - Anesthesia Hx Anesthesia: Yes Hx Anesthesia Reactions: No Hx Malignant Hyperthermia: No - Suicidal Assessment Feels Threatened In Home Enviroment: No Patient Medical History - Provider Review Nursing Documentation Reviewed: Yes - Infectious Disease Hx of Infectious Diseases: None Hx Cholecystectomy: Yes - Past Medical History Hx Hypertension: Yes Hx Pacemaker: No - Psychiatric History Feels Threatened In Home Enviroment: No Hx Physical Abuse: No Hx Emotional Abuse: No Family/Social History - Physician Review Nursing Documentation Reviewed: Yes Family/Social History: No Known Family HX Smoking Status: Never Smoked Hx Alcohol Use: No Hx Substance Use: No Allergies/Home Meds Allergies/Adverse Reactions: Allergies No Known Allergies Allergy (Verified 04/28/18 12:24) Home Medications: Home Meds Medication Instructions Recorded Confirmed RX: Glipizide 10 mg PO DAILY 04/10/15 04/28/18 RX: Lisinopril [Zestril] 10 mg PO QAM 04/10/15 04/28/18 RX: MetFORMIN [glucoPHAGE] 1,000 mg PO BID 04/10/15 04/28/18 RX: amLODIPine [Norvasc] 5 mg PO DAILY 05/03/15 04/28/18 Review of Systems - Physician Review All systems were reviewed & negative as marked: Yes - Review of Systems Constitutional: Fatigue, Fevers, Other (weakness) Gastrointestinal: Diarrhea (5 episodes) Musculoskeletal: Myalgias Physical Exam Vital Signs Reviewed: Yes Vital Signs Temp Pulse Resp BP Pulse Ox 04/28/18 13:55 75 18 148/74 98 04/28/18 12:44 98.5 F 82 18 154/77 H 98 04/28/18 12:25 98.5 F 82 16 154/77 H 98 Temperature: Afebrile Blood Pressure: Normal Pulse: Regular Respiratory Rate: Normal Appearance: Positive for: Well-Appearing, Non-Toxic, Comfortable Pain Distress: None Mental Status: Positive for: Alert and Oriented X 3 - Systems Exam Head: Present: Atraumatic, Normocephalic Pupils: Present: PERRL Extroacular Muscles: Present: EOMI Conjunctiva: Present: Normal Mouth: Present: Moist Mucous Membranes Pharnyx: Present: Normal Neck: Present: Normal Range of Motion, Other (no meningeal signs) Respiratory/Chest: Present: Clear to Auscultation, Good Air Exchange. No: Respiratory Distress, Accessory Muscle Use Cardiovascular: Present: Regular Rate and Rhythm, Normal S1, S2. No: Murmurs Abdomen: Present: Normal Bowel Sounds. No: Tenderness, Distention, Peritoneal Signs Back: Present: Normal Inspection Upper Extremity: Present: Normal Inspection. No: Cyanosis, Edema Lower Extremity: Present: Normal Inspection. No: Edema Neurological: Present: GCS=15, CN II-XII Intact, Speech Normal, Motor Func Grossly Intact, Normal Sensory Function, Gait Normal Skin: Present: Warm, Dry, Normal Color. No: Rashes Psychiatric: Present: Alert, Oriented x 3, Normal Insight, Normal Concentration Medical Decision Making ED Course and Treatment: 04/28/18 14:07 Impression: 52 year old male with headache, weakness, fatigue. Plan: -- Motrin -- Tamiflu -- Reassess and disposition Patient agreeable w/POC. Progress Notes: 04/28/2018 14:09 Patient reassessed, feels better and is ready to home. Patient is instructed to take Motrin or Tylenol for body aches and fever, f/u w/pcp and RTED for new, worsening or concerning symptoms. Patient verbalized understanding of his d/c instructions. - Medication Orders Current Medication Orders: Discontinued Medications Ibuprofen (Motrin Tab) 600 mg PO STAT STA Stop: 04/28/18 13:37 Oseltamivir Phosphate (Tamiflu Cap) 75 mg PO BID STA; Protocol Stop: 04/28/18 13:36 Disposition/Present on Arrival - Present on Arrival Any Indicators Present on Arrival: Yes History of DVT/PE: No History of Uncontrolled Diabetes: Yes Urinary Catheter: No History of Decub. Ulcer: No History Surgical Site Infection Following: None - Disposition Have Diagnosis and Disposition been Completed?: Yes Diagnosis: Influenza-like symptoms Disposition: HOME/ ROUTINE Disposition Time: 13:58 Patient Plan: Discharge Condition: STABLE Discharge Instructions (ExitCare): Flu, Adult (DC) Prescriptions: Oseltamivir Cap [Tamiflu] 75 mg PO BID #9 cap Referrals: Jose Manuel Freedman DO [Primary Care Provider] - Follow up with primary Forms: [employer] ([place]) - Scribe Statement The provider has reviewed the documentation as recorded by the Marciano Del Valle Provider Scribe Attestation: All medical record entries made by the Anibalibvitaly were at my direction and personally dictated by me. I have reviewed the chart and agree that the record a ccurately reflects my personal performance of the history, physical exam, medical decision making, and the department course for this patient. I have also personally directed, reviewed, and agree with the discharge instructions and disposition.
== END 2018-04-28 14:24 | disposition home or self-care (01) ==
LOC: ED 11:31
DX: J11.1 Influenza due to unidentified influenza virus with other respiratory manifestations (principal)

== ENCOUNTER 2018-08-06 19:04 | Emergency (ER) | payer BC ==
[2018-08-06 19:05] VITALS: BMI 30.8
[2018-08-06 19:35] VITALS: BP 141/83; PULSE 81; RESP 22; TEMP 98.3; O2SAT 97
[2018-08-06] MEDS ORDERED: guaiFENesin 200 mg/10 ml Syrup UD PO ONE (19:52)
--- NOTE | 2018-08-06 19:54 | ED PDOC ---
Arrival/HPI - General Chief Complaint: Cough, Cold, Congestion Time Seen by Provider: 08/06/18 19:08 Historian: Patient - History of Present Illness Narrative History of Present Illness (Text): 08/06/18 20:15 53-year-old male with past medical history of diabetes and hypertension presents to the emergency room complaining of 4-day history of dry cough associated with runny nose and sore throat. Patient states that his is sick with similar symptoms. Otherwise he reports no fever, chills, difficulty swallowing, chest pain, shortness of breath, back pain, abdominal pain, nausea, vomiting, recent travel, sick contacts. Past Medical History - Infectious Disease Hx of Infectious Diseases: None - Cardiac Hx Cardiac Disorders: Yes Hx Hypertension: Yes Hx Pacemaker: No - Pulmonary Hx Respiratory Disorders: No - Neurological Hx Neurological Disorder: No - HEENT Hx HEENT Disorder: No - Renal Hx Renal Disorder: No - Endocrine/Metabolic Hx Endocrine Disorders: Yes Hx Diabetes Mellitus Type 2: Yes - Hematological/Oncological Hx Blood Disorders: No - Integumentary Hx Dermatological Disorder: No - Musculoskeletal/Rheumatological Hx Musculoskeletal Disorders: No - Gastrointestinal Hx Gastrointestinal Disorders: No - Genitourinary/Gynecological Hx Genitourinary Disorders: No - Psychiatric Hx Psychophysiologic Disorder: No Hx Emotional Abuse: No Hx Physical Abuse: No Hx Substance Use: No - Surgical History Hx Cholecystectomy: Yes - Anesthesia Hx Anesthesia: Yes Hx Anesthesia Reactions: No Hx Malignant Hyperthermia: No - Suicidal Assessment Feels Threatened In Home Enviroment: No Family/Social History Family/Social History: No Known Family HX Smoking Status: Never Smoked Hx Alcohol Use: No Hx Substance Use: No Allergies/Home Meds Allergies/Adverse Reactions: Allergies No Known Allergies Allergy (Verified 08/06/18 19:35) Home Medications: Home Meds Medication Instructions Recorded Confirmed Glipizide 10 mg PO DAILY 04/10/15 08/06/18 Lisinopril [Zestril] 10 mg PO QAM 04/10/15 08/06/18 MetFORMIN [glucoPHAGE] 1,000 mg PO BID 04/10/15 08/06/18 amLODIPine [Norvasc] 10 mg PO DAILY 05/03/15 08/06/18 Review of Systems - Review of Systems Constitutional: absent: Fatigue, Fevers ENT: Sore Throat, Rhinorrhea. absent: Sinus Congestion Respiratory: Cough. absent: SOB Cardiovascular: absent: Chest Pain, Palpitations Gastrointestinal: absent: Abdominal Pain, Nausea, Vomiting Musculoskeletal: absent: Arthralgias, Back Pain, Neck Pain Skin: absent: Rash, Skin Lesions Neurological: absent: Headache, Dizziness Physical Exam Vital Signs Temp Pulse Resp BP Pulse Ox 08/06/18 19:32 98.3 F 81 22 141/83 97 Temperature: Afebrile Blood Pressure: Normal Pulse: Regular Respiratory Rate: Normal Appearance: Positive for: Well-Appearing, Non-Toxic, Comfortable Pain Distress: None Mental Status: Positive for: Alert and Oriented X 3 - Systems Exam Head: Present: Atraumatic, Normocephalic Pupils: Present: PERRL Extroacular Muscles: Present: EOMI Conjunctiva: Present: Normal Ears: Present: Normal, NORMAL TM Mouth: Present: Moist Mucous Membranes Pharnyx: Present: ERYTHEMA. No: EXUDATE, TONSILS ENLARGED, Peritonsilar Swelling, Uvular Deviation, Muffled/Hoarse Voice, Soft Palate/Uvular Edema Neck: Present: Normal Range of Motion Respiratory/Chest: Present: Clear to Auscultation, Good Air Exchange. No: Respiratory Distress, Accessory Muscle Use Cardiovascular: Present: Regular Rate and Rhythm, Normal S1, S2. No: Murmurs Abdomen: No: Tenderness, Distention, Peritoneal Signs Back: Present: Normal Inspection Upper Extremity: Present: Normal Inspection. No: Cyanosis, Edema Lower Extremity: Present: Normal Inspection. No: Edema Neurological: Present: GCS=15, CN II-XII Intact, Speech Normal Skin: Present: Warm, Dry, Normal Color. No: Rashes Psychiatric: Present: Alert, Oriented x 3, Normal Insight, Normal Concentration Medical Decision Making ED Course and Treatment: 08/06/18 20:05 Diagnosis of pharyngitis d/w the patient. Patient medicated with amoxicillin po and guaifenesin po. Advised to follow up with primary care physician in 1-2 days without fail. Advised to take medication as prescribed. Return to the emergency room at any time for any new or worsening symptoms. Patient states he fully agrees with and understands discharge instructions. States that he agrees with the plan and disposition. Verbalized and repeated discharge instructions and plan. I have given the patient opportunity to ask any additional questions. - PA / EARLY CHILDHOOD EDUCATOR AIDE / Resident Statement MD/DO has reviewed & agrees with the documentation as recorded. Disposition/Present on Arrival - Present on Arrival Any Indicators Present on Arrival: Yes History of DVT/PE: No History of Uncontrolled Diabetes: Yes Urinary Catheter: No History of Decub. Ulcer: No History Surgical Site Infection Following: None - Disposition Have Diagnosis and Disposition been Completed?: Yes Diagnosis: Pharyngitis Disposition: HOME/ ROUTINE Disposition Time: 19:55 Patient Plan: Discharge Condition: STABLE Discharge Instructions (ExitCare): Sore Throat in Adults Additional Instructions: Thank you for letting us take care of you today. You were treated for pharyngitis. The emergency medical care you received today was directed at your acute symptoms. If you were prescribed any medication, please fill it and take as directed. It may take several days for your symptoms to resolve. Return to the Emergency Department if your symptoms worsen, do not improve, or if you have any other problems. Please contact your doctor in 2 days for re-evaluation and follow up. Bring any paperwork you were given at discharge with you along with any medications you are taking to your follow up visit. Our treatment cannot replace ongoing medical care by a primary care provider (PCP) outside of the emergency department. Thank you for allowing the [facility] team to be part of your care today. Prescriptions: Amoxicillin 500 mg PO TID #30 tablet Guaifenesin [Adult Tussin Chest Congestion] 200 mg PO Q6H PRN #200 ml PRN Reason: Cough Forms: [employer] ([place]), WORK NOTE
== END 2018-08-06 20:24 | disposition home or self-care (01) ==
LOC: ED 19:04
DX: J02.9 Acute pharyngitis, unspecified (principal)